=== PATIENT | male | born 1965 | race Caucasian/White ===

== ENCOUNTER 2018-02-16 10:19 | Inpatient (IN) | payer OTHER ==
[2018-02-16 10:38] VITALS: BMI 18.6
--- NOTE | 2018-02-16 12:51 | HP ---
COWS - Scale Resting Pulse: 0= [place] 80 or Below Sweatin= Chills/Flushing Restless Observation: 3= Extraneous Movement Pupil Size: 2= Moderately Dilated Bone or Joint Aches: 1= Mild Discomfort Runny Nose/ Eye Tearin= Runny Nose/Eyes GI Upset > 30mins: 2= Nausea/Diarrhea (NAUSEA) Tremor Observation: 2= Slight Tremor Visible Yawning Observation: 1= 1-2x During Session Anxiety or Irritability: 2=Irritable/Anxious Goose Flesh Skin: 0=Smooth Skin COWS Score: 16 CIWA Score - CIWA Score Nausea/Vomitin-Int. Nausea w/Dry Heave Muscle Tremors: 3 Anxiety: 4-Mod. Anxious/Guarded Agitation: 3 Paroxysmal Sweats: 1-Minimal Palms Moist Orientation: 0-Oriented Tacttile Disturbances: 0-None Auditory Disturbances: 0-None Visual Disturbances: 0-None Headache: 0-None Present CIWA-Ar Total Score: 15 Admission ROS S - HPI Chief Complaint: HEROIN AND ALCOHOL WITHDRAWAL SX. Allergies/Adverse Reactions: Allergies Allergy/AdvReac Type Severity Reaction Status Date / Time Fish Containing Products Allergy Severe Hives Verified 02/16/18 10:38 NKDA Allergy Uncoded 02/16/18 11:30 History of Present Illness: 52 Y/O H/MALE WITH A HX OF HEROIN, ALCOHOL AND COCAINE DEPENDENCE SEEKING DETOX TX. FIRST ADMISSION HERE. PT REPORTS PREVIOUS TREATMENT EPISODES. PT REPORTS LONGEST PERIOD OF SOBRIETY OF SEVEN YEARS. PT REPORTS PMD TO BE DR. HECTOR GUEVARA AT [facility]. Exam Limitations: No Limitations - Ebola screening Have you traveled outside of the country in the last 21 days: No Have you had contact with anyone from an Ebola affected area: No Have you been sick,other than usual withdrawal symptoms: No Do you have a fever: No - Review of Systems Constitutional: Chills, Loss of Appetite, Night Sweats, Changes in sleep, Unintentional Wgt. Loss EENT: reports: Tearing, Nose Congestion, Dental Problems (MISSING TEETH) Respiratory: reports: Shortness of Breath (HX ASTHMA), Wheezing Cardiac: reports: Lightheadedness GI: reports: Constipated (OIC), Diarrhea, Nausea, Poor Appetite, Poor Fluid Intake, Vomiting : reports: No Symptoms Reported Musculoskeletal: reports: Joint Pain, Muscle Pain Integumentary: reports: Rash Endocrine: reports: No Symptoms Reported Hematology: reports: Anemia (HX) Psychiatric: reports: Orientated x3, Anxious, Depressed Other Systems: Reviewed and Negative Patient History - Patient Medical History Hx Anemia: Yes (NO MED) Hx Asthma: Yes (MDI) Hx Chronic Obstructive Pulmonary Disease (COPD): Yes (MDI) Hx Cardiac Disorders: No Hx Hypertension: No Hx Hypercholesterolemia: No HX Cerebrovascular Accident: No Hx Seizures: No Hx Diabetes: No Hx Gastrointestinal Disorders: No Hx Genitourinary Disorders: No Hx Sexually Transmitted Disorders: No Hx Renal Disease (ESRD): No Hx Thyroid Disease: No Hx Human Immunodeficiency Virus (HIV): No (NEGATIVE HX) Hx Hepatitis C: No Hx Depression: Yes (NO MEDS-WANTS PSYCH FOLLOW UP ) Hx Suicide Attempt: No (DENIES S/I) Hx Schizophrenia: No - Patient Surgical History Past Surgical History: Yes Hx Neurologic Surgery: No Hx Cataract Extraction: No Hx Cardiac Surgery: No Hx Lung Surgery: No Hx Breast Surgery: No Hx Breast Biopsy: No Hx Abdominal Surgery: No Hx Appendectomy: No Hx Cholecystectomy: No Hx Genitourinary Surgery: No Hx Orthopedic Surgery: Yes (fx, left arm at age 33) Other Surgical History: fx, bilateral mandible at age 13 Anesthesia Reaction: No - PPD History Previous Implant?: Yes Documented Results: Negative w/o proof Implanted On Prior R Admission?: No PPD to be Administered?: Yes - Reproductive History Patient is a Female of Child Bearing Age (11 -55 yrs old): No (MALE) - Smoking Cessation Smoking history: Current every day smoker Have you smoked in the past 12 months: Yes Aproximately how many cigarettes per day: 5 Hx Chewing Tobacco Use: No Initiated information on smoking cessation: Yes 'Breaking Loose' booklet given: 02/16/18 - Substance & Tx. History Hx Alcohol Use: Yes (VODKA) Hx Substance Use: Yes (HEROIN/COCAINE) Substance Use Type: Alcohol, Cocaine, Heroin Hx Substance Use Treatment: Yes (LAST TX AT [facility])) - Substances Abused Heroin Route: Inhalation Frequency: Daily Amount used: 4-5 bags Age of first use: 25 Date of Last Use: 02/16/18 Cocaine Route: Inhalation Frequency: 1-2 times per week Amount used: $10 Age of first use: 19 Date of Last Use: 02/14/18 Alcohol-vodka/beer Route: Oral Frequency: Daily Amount used: 1/2 - 1 pt./1-6 pk. Age of first use: 15 Date of Last Use: 02/16/18 Family Disease History - Family Disease History Family History: Denies Admission Physical Exam [facility] - Vital Signs Vital Signs: Vital Signs - 24 hr 02/16/18 10:36 Temperature 97.2 F L Pulse Rate 71 Respiratory 20 Rate Blood Pressure 117/84 - Physical General Appearance: Yes: Moderate Distress, Alcohol on Breath, Thin, Irritable, Anxious HEENTM: Yes: EOMI, Normocephalic, KOBI, Pharynx Normal, Nasal Congestion, Rhinorrhea Respiratory: Yes: Chest Non-Tender, Lungs Clear, Normal Breath Sounds, No Respiratory Distress Neck: Yes: No masses,lesions,Nodules, Supple, Trachea in good position Breast: Yes: Breast Exam Deferred Cardiology: Yes: Regular Rhythm, Regular Rate, S1, S2 Abdominal: Yes: Normal Bowel Sounds, Non Tender, Flat Genitourinary: Yes: Other (N/C) Back: Yes: Within Normal Limits Musculoskeletal: Yes: Gait Steady Extremities: Yes: Normal Range of Motion, Non-Tender Neurological: Yes: mass spec II-XII NML intact, Fully Oriented, Alert, Motor Strength 5/5 Integumentary: Yes: Dry, Warm Lymphatic: Yes: Within Normal Limits - Diagnostic (1) Opioid dependence with withdrawal Current Visit: Yes Status: Acute (2) Alcohol dependence with uncomplicated withdrawal Current Visit: Yes Status: Acute (3) Cocaine dependence, uncomplicated Current Visit: Yes Status: Acute (4) Depressed Current Visit: Yes Status: Suspected Qualifiers: Major depression episode severity: unspecified Cleared for Admission [facility] - Detox or Rehab [facility] Level of Care: Medically Managed Detox Regimen/Protocol: Methadone/Librium [facility] Breath Alcohol Content Breath Alcohol Content: 0.024 Urine Drug Screen - Results Drug Screen Negative: No Urine Drug Screen Results: THC-Marijuana, SERGEI-Cocaine, OPI-Opiates, TCA- Tricyclic Antidepress
[2018-02-16] MEDS ORDERED: MAGNESIUM CITRATE 300 ML BOTTLE PO PRN (13:05)
[2018-02-16] MEDS ORDERED: hydrOXYzine PAMOATE 50 MG CAPSULE (FP) PO PRN (13:05)
[2018-02-16] MEDS ORDERED: LOPERAMIDE HCL 2 MG CAPSULE PO PRN (13:05)
[2018-02-16] MEDS ORDERED: MAGNESIUM HYDROX 2400MG/30ML ORAL SUSPENSION 30 ML CUP PO PRN (13:05)
[2018-02-16] MEDS ORDERED: P-EPHED 60MG/TRIPROLIDI 2.5MG TABLET PO PRN (13:05)
[2018-02-16] MEDS ORDERED: guaiFENesin/D-METHORPHAN HB 10 ML UNIT-DOSE CUPS PO PRN (13:05)
[2018-02-16] MEDS ORDERED: ACETAMINOPHEN 325 MG TABLET (FP) PO PRN (13:05)
[2018-02-16] MEDS ORDERED: chlordiazePOXIDE HCL 25 MG CAPSULE PO PRN (13:05)
[2018-02-16] MEDS ORDERED: IBUPROFEN 400 MG TABLET (FP) PO PRN (13:05)
[2018-02-16] MEDS ORDERED: MAG HYDROX/AL HYDROX/SIMETH 30 ML UNIT-DOSE CUP PO PRN (13:05)
[2018-02-16] MEDS ORDERED: MENTHOL/PHENOL 1 EACH UD MM PRN (13:05)
[2018-02-16] MEDS ORDERED: NICOTINE POLACRILEX 2 MG GUM BUC PRN (13:05)
[2018-02-16] MEDS ORDERED: ALBUTEROL SO4 18 GM HFA INHALER IH PRN (13:10)
[2018-02-16] MEDS ORDERED: METHADONE HCL 10 MG TABLET (FOR DETOX USE ONLY) PO ONE ×2 (13:30→23:00)
[2018-02-16] MEDS ORDERED: chlordiazePOXIDE HCL 25 MG CAPSULE PO ONE (13:30)
[2018-02-16] MEDS: NICOTINE 14 MG/24 HOURS TOPICAL PATCH TD SCH (13:58)
--- NOTE | 2018-02-16 14:47 | CONSULT ---
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 This is patient's first admission to detox at [facility]. Patient admitted to for alcohol and heroin dependence. Substance Abuse History: Smoking Cessation. Smoking history: Current every day smoker. Have you smoked in the past 12 months: Yes. Aproximately how many cigarettes per day: 5. Hx Chewing Tobacco Use: No. Initiated information on smoking cessation: Yes. 'Breaking Loose' booklet given: 02/16/18. - Substance & Tx. History. Hx Alcohol Use: Yes (VODKA). Hx Substance Use: Yes (HEROIN/ COCAINE). Substance Use Type: Alcohol, Cocaine, Heroin. Hx Substance Use Treatment: Yes (LAST TX AT [facility])). - Substances Abused. Heroin. Route: Inhalation. Frequency: Daily. Amount used: 4-5 bags. Age of first use : 25. Date of Last Use: 02/16/18. Cocaine. Route: Inhalation. Frequency: 1-2 times per week. Amount used: $10. Age of first use: 19. Date of Last Use : 02/14/18. Alcohol-vodka/beer. Route: Oral. Frequency: Daily. Amount used: 1/2 - 1 pt./1-6 pk. Age of first use: 15. Date of Last Use: 02/16/18 Medical History: Asthma, Anemia, bilateral mandible surgery at 13, fxl left arm at age 33, Psychiatric History: Patient denies h/o psychiatric hospitalization, outpatient care, and suicide attempt. Physical/Sexual Abuse/Trauma History: Denies. Mental Status Exam - Mental Status Exam Alert and Oriented to: Time, Place, Person Cognitive Function: Good Patient Appearance: Well Groomed Mood: Hopeful Affect: Mood Congruent Patient Behavior: Appropriate, Cooperative Speech Pattern: Appropriate Voice Loudness: Normal Thought Process: Intact, Goal Oriented Thought Disorder: Not Present Hallucinations: Denies Suicidal Ideation: Denies Homicidal Ideation: Denies Insight/Judgement: Poor Sleep: Fair Appetite: Poor Muscle strength/Tone: Normal Gait/Station: Normal Psychiatric Findings - Problem List ([place] 1, 2,3) (1) Alcohol dependence with uncomplicated withdrawal Current Visit: Yes Status: Acute (2) Opioid dependence with withdrawal Current Visit: Yes Status: Acute (3) Substance induced mood disorder Current Visit: Yes Status: Suspected (4) Cocaine dependence, uncomplicated Current Visit: Yes Status: Acute (5) Cannabis dependence Current Visit: Yes Status: Acute - Initial Treatment Plan Initial Treatment Plan: Psychoeducation provided. Detoxification in progress. Observation.
[2018-02-16] MEDS: chlordiazePOXIDE HCL 25 MG CAPSULE PO SCH ×2 (17:28→22:11)
[2018-02-16 20:39] LABS: URINE APPEARANCE CLEAR; URINE BILIRUBIN NEGATIVE (<2.0 mg/dL); URINE COLOR DKYELLOW; URINE GLUCOSE (UA) NEGATIVE (NEGATIVE); URINE KETONE NEGATIVE (NEGATIVE); URINE LEUK ESTERASE NEGATIVE (NEGATIVE); URINE NITRITE NEGATIVE (NEGATIVE); URINE PROTEIN NEGATIVE (NEGATIVE)
[2018-02-16] MEDS: BUDESONIDE/FORMETEROL FUMARATE 80/4.5 mcg INHALER IH SCH (22:11)
[2018-02-16] MEDS: THIAMINE HCL 100 MG TABLET (FP) PO SCH (22:11)
[2018-02-16] MEDS: MELATONIN 5 MG TABLETS PO PRN (22:13)
[2018-02-17] MEDS: chlordiazePOXIDE HCL 25 MG CAPSULE PO SCH ×4 (07:05→22:22)
--- NOTE | 2018-02-17 09:50 | EKG ---
Test Reason : Blood Pressure : / mmHG Vent. Rate : 067 BPM Atrial Rate : 067 BPM P-R Int : 118 ms QRS Dur : 088 ms QT Int : 392 ms P-R-T Axes : -15 068 067 degrees QTc Int : 414 ms NORMAL SINUS RHYTHM NO PREVIOUS ECGS AVAILABLE Confirmed by ADRIANNA FLORES MD ([id number]) on 02/17/2018 9:49:55 AM Referred By: Confirmed By:ADRIANNA FLORES MD
[2018-02-17 10:00] LABS: HEMATOCRIT 38.1 % (35.4-49); MCH 31.5 pg (25.7-33.7); MCHC 34.1 g/dl (32.0-35.9); MEAN CELL VOLUME 92.4 fl (80-96); MEAN PLT VOLUME 7.9 fl (7.5-11.1); PLATELET COUNT 360 K/MM3 (134-434); RBC 4.12 M/mm3 (4.00-5.60); RDW 13.9 % (11.9-15.9); WHITE BLOOD COUNT 5.7 K/mm3 (4.0-10.0)
[2018-02-17] MEDS ORDERED: METHADONE HCL 10 MG TABLET (FOR DETOX USE ONLY) PO SCH (10:00)
[2018-02-17] MEDS: PRENATAL VITAMINS W/ FOLIC ACID TABLET (FP) PO SCH (10:37)
[2018-02-17] MEDS: BUDESONIDE/FORMETEROL FUMARATE 80/4.5 mcg INHALER IH SCH ×2 (10:38→22:22)
[2018-02-17] MEDS: NICOTINE 14 MG/24 HOURS TOPICAL PATCH TD SCH (10:38)
[2018-02-17 11:18] LABS: SICKLE CELL SCREEN NEGATIVE (NEGATIVE)
[2018-02-17 11:42] LABS: ALBUMIN 3.3 g/dl (3.4-5.0); ALK PHOS 95 U/L (45-117); ANION GAP 4 (8-16); BILIRUBIN,TOTAL 0.4 mg/dL (0.2-1.0); BLOOD UREA NITROGEN 13 mg/dL (7-18); CALCIUM 9.2 mg/dL (8.5-10.1); CHLORIDE 104 mmol/L (98-107); CO2 29 mmol/L (21-32); CREATININE 0.9 mg/dL (0.7-1.3); GLUCOSE,RANDOM 148 mg/dL (74-106); POTASSIUM 4.6 mmol/L (3.5-5.1); SGOT/AST 18 U/L (15-37); SGPT/ALT 19 U/L (12-78); SODIUM 137 mmol/L (136-145); TOT PROT 7.2 g/dl (6.4-8.2)
--- NOTE | 2018-02-17 13:54 | PN ---
S CIWA - CIWA Score Nausea/Vomitin-Int. Nausea w/Dry Heave Muscle Tremors: 3 Anxiety: 4-Mod. Anxious/Guarded Agitation: 2 Paroxysmal Sweats: 2 Orientation: 0-Oriented Tacttile Disturbances: 1-Very Mild Itch/Numbness Auditory Disturbances: 1-Very Mild Visual Disturbances: 0-None Headache: 0-None Present CIWA-Ar Total Score: 17 [facility] COWS - Scale Resting Pulse: 0= [place] 80 or Below Sweatin= Chills/Flushing Restless Observation: 0= Sits Still Pupil Size: 0= Normal to Room Light Bone or Joint Aches: 0= None Runny Nose/ Eye Tearin= Runny Nose/Eyes GI Upset > 30mins: 2= Nausea/Diarrhea Tremor Observation of Outstretched Hands: 2= Slight Tremor Visible Yawning Observation: 2= >3x During Session Anxiety or Irritability: 2=Irritable/Anxious Goose Flesh Skin: 3=Piloerection COWS Score: 14 S Progress Note (SOAP) Subjective: Anxious, Fatigue, Sweating, Tremors. Objective: PATIENT A & O X 3. NO ACUTE DISTRESS. 02/17/18 13:55 Vital Signs Temperature 97.5 F L 02/17/18 09:24 Pulse Rate 59 L 02/17/18 09:24 Respiratory Rate 18 02/17/18 09:24 Blood Pressure 108/68 02/17/18 09:24 O2 Sat by Pulse Oximetry (%) Laboratory Tests 02/16/18 02/17/18 02/17/18 14:40 06:00 06:00 WBC 5.7 RBC 4.12 Hgb 13.0 Hct 38.1 MCV 92.4 MCH 31.5 MCHC 34.1 RDW 13.9 Plt Count 360 MPV 7.9 Sickle Cell Screen Negative Sodium 137 Potassium 4.6 Chloride 104 Carbon Dioxide 29 Anion Gap 4 L BUN 13 Creatinine 0.9 Creat Clearance w eGFR > 60 Random Glucose 148 H Calcium 9.2 Total Bilirubin 0.4 AST 18 ALT 19 Alkaline Phosphatase 95 Total Protein 7.2 Albumin 3.3 L Urine Color Dkyellow Urine Appearance Clear Urine pH 5.0 Ur Specific [place] 1.026 Urine Protein Negative Urine Glucose (UA) Negative Urine Ketones Negative Urine Blood Negative Urine Nitrite Negative Urine Bilirubin Negative Urine Urobilinogen 2.0 Ur Leukocyte Esterase Negative RPR Titer 02/17/18 06:00 WBC RBC Hgb Hct MCV MCH MCHC RDW Plt Count MPV Sickle Cell Screen Sodium Potassium Chloride Carbon Dioxide Anion Gap BUN Creatinine Creat Clearance w eGFR Random Glucose Calcium Total Bilirubin AST ALT Alkaline Phosphatase Total Protein Albumin Urine Color Urine Appearance Urine pH Ur Specific [place] Urine Protein Urine Glucose (UA) Urine Ketones Urine Blood Urine Nitrite Urine Bilirubin Urine Urobilinogen Ur Leukocyte Esterase RPR Titer Nonreactive LABS NOTED. Assessment: 02/17/18 13:56 WITHDRAWAL SYMPTOMS. Plan: CONTINUE DETOX. INCREASE DAILY PO FLUID INTAKE. BGM ACBK FOR ELEVATED ADMISSION RANDOM GLUCOSE LEVEL.
[2018-02-17] MEDS: MELATONIN 5 MG TABLETS PO PRN (22:21)
[2018-02-17] MEDS: THIAMINE HCL 100 MG TABLET (FP) PO SCH (22:21)
[2018-02-18] MEDS: chlordiazePOXIDE HCL 25 MG CAPSULE PO SCH ×2 (05:35→10:26)
[2018-02-18] MEDS ORDERED: METHADONE HCL 5 MG TABLET (FOR DETOX USE ONLY) PO SCH (10:00)
[2018-02-18] MEDS: NICOTINE 14 MG/24 HOURS TOPICAL PATCH TD SCH (10:26)
[2018-02-18] MEDS: PRENATAL VITAMINS W/ FOLIC ACID TABLET (FP) PO SCH (10:26)
[2018-02-18] MEDS: BUDESONIDE/FORMETEROL FUMARATE 80/4.5 mcg INHALER IH SCH (10:26)
[2018-02-18 13:25] VITALS: BP 123/77; PULSE 62; TEMP 97
--- NOTE | 2018-02-18 15:48 | PN ---
[facility] CIWA - CIWA Score Nausea/Vomitin-No Nausea/No Vomiting Muscle Tremors: 3 Anxiety: 4-Mod. Anxious/Guarded Agitation: 2 Paroxysmal Sweats: 3 Orientation: 0-Oriented Tacttile Disturbances: 2-Mild Itch/Numbness/Burn Auditory Disturbances: 0-None Visual Disturbances: 2-Mild Sensitivity Headache: 0-None Present CIWA-Ar Total Score: 16 S COWS - Scale Resting Pulse: 0= [place] 80 or Below Sweatin= Chills/Flushing Restless Observation: 0= Sits Still Pupil Size: 0= Normal to Room Light Bone or Joint Aches: 0= None Runny Nose/ Eye Tearin= Nasal Congestion GI Upset > 30mins: 0= None Tremor Observation of Outstretched Hands: 2= Slight Tremor Visible Yawning Observation: 2= >3x During Session Anxiety or Irritability: 2=Irritable/Anxious Goose Flesh Skin: 3=Piloerection COWS Score: 11 S Progress Note (SOAP) Subjective: Sweating, Anxious, Tremors, Hot / Cold Sensations. Objective: PATIENT A & O X 3, OBSERVED AMBULATING ON UNIT. NO ACUTE DISTRESS. 02/18/18 15:47 Vital Signs Temperature 97.0 F L 02/18/18 13:25 Pulse Rate 62 02/18/18 13:25 Respiratory Rate 18 02/18/18 13:25 Blood Pressure 123/77 02/18/18 13:25 O2 Sat by Pulse Oximetry (%) Laboratory Tests 02/16/18 02/17/18 02/17/18 14:40 06:00 06:00 WBC 5.7 RBC 4.12 Hgb 13.0 Hct 38.1 MCV 92.4 MCH 31.5 MCHC 34.1 RDW 13.9 Plt Count 360 MPV 7.9 Sickle Cell Screen Negative Sodium 137 Potassium 4.6 Chloride 104 Carbon Dioxide 29 Anion Gap 4 L BUN 13 Creatinine 0.9 Creat Clearance w eGFR > 60 Random Glucose 148 H Calcium 9.2 Total Bilirubin 0.4 AST 18 ALT 19 Alkaline Phosphatase 95 Total Protein 7.2 Albumin 3.3 L Urine Color Dkyellow Urine Appearance Clear Urine pH 5.0 Ur Specific [place] 1.026 Urine Protein Negative Urine Glucose (UA) Negative Urine Ketones Negative Urine Blood Negative Urine Nitrite Negative Urine Bilirubin Negative Urine Urobilinogen 2.0 Ur Leukocyte Esterase Negative RPR Titer 02/17/18 06:00 WBC RBC Hgb Hct MCV MCH MCHC RDW Plt Count MPV Sickle Cell Screen Sodium Potassium Chloride Carbon Dioxide Anion Gap BUN Creatinine Creat Clearance w eGFR Random Glucose Calcium Total Bilirubin AST ALT Alkaline Phosphatase Total Protein Albumin Urine Color Urine Appearance Urine pH Ur Specific [place] Urine Protein Urine Glucose (UA) Urine Ketones Urine Blood Urine Nitrite Urine Bilirubin Urine Urobilinogen Ur Leukocyte Esterase RPR Titer Nonreactive LABS NOTED. Assessment: 02/18/18 15:47 WITHDRAWAL SYMPTOMS. Plan: CONTINUE DETOX. INCREASE DAILY PO FLUID INTAKE. ENCOURAGE AMBULATION.
[2018-02-18] MEDS ORDERED: chlordiazePOXIDE 5 MG CAPSULE PO SCH (17:00)
--- NOTE | 2018-02-18 18:19 | PN ---
[facility] Progress Note Note: pt left the unit prior to provider eval. Insisting on leaving and did not wait
--- NOTE | 2018-02-18 18:20 | DS ---
[facility] Detox Discharge Summary Admission Date: 02/16/18 Discharge Date: 02/18/18 - History Additional Comments: pt left the unit against medical advice - Physical Exam Results Vital Signs: Vital Signs Temperature 97.0 F L 02/18/18 13:25 Pulse Rate 62 02/18/18 13:25 Respiratory Rate 18 02/18/18 13:25 Blood Pressure 123/77 02/18/18 13:25 O2 Sat by Pulse Oximetry (%) Pertinent Admission Physical Exam Findings: withdrawal sx - Medication Discharge Medications: Ambulatory Orders Albuterol Sulfate Inhaler - [Ventolin Hfa Inhaler -] 2 inh PO Q4H PRN 02/16/18 - Diagnosis (1) Alcohol dependence with uncomplicated withdrawal Status: Acute (2) Cannabis dependence Status: Acute (3) Cocaine dependence, uncomplicated Status: Acute (4) Opioid dependence with withdrawal Status: Acute (5) Depressed Status: Suspected Qualifiers: Depression Type: unspecified Qualified Code(s): F32.9 - Major depressive disorder, single episode, unspecified (6) Substance induced mood disorder Status: Suspected - AMA Did Patient Leave Against Medical Advice: Yes
[2018-02-19] MEDS ORDERED: chlordiazePOXIDE HCL 10 MG CAPSULE PO SCH (17:00)
[2018-02-20] MEDS ORDERED: METHADONE HCL 10 MG TABLET (FOR DETOX USE ONLY) PO SCH (10:00)
[2018-02-21] MEDS ORDERED: METHADONE HCL 5 MG TABLET (FOR DETOX USE ONLY) PO SCH (06:00)
== END 2018-02-18 17:44 | disposition left against medical advice (07) | DRG 770 ==
LOC: YASAS 10:19 → Y3N 13:17
PROVIDERS: ADMIT Family Medicine Addiction Medicine; ATTEND Family Medicine Addiction Medicine
PROC: HZ2ZZZZ Detoxification Services for Substance Abuse Treatment (ICD-10-PCS; principal; 2018-02-16)
DX: F11.23 Opioid dependence with withdrawal (principal); F10.230 Alcohol dependence with withdrawal, uncomplicated; F14.20 Cocaine dependence, uncomplicated; F12.20 Cannabis dependence, uncomplicated; F17.210 Nicotine dependence, cigarettes, uncomplicated; F32.9 Major depressive disorder, single episode, unspecified; F19.24 Other psychoactive substance dependence with psychoactive substance-induced mood disorder; J45.909 Unspecified asthma, uncomplicated; J44.9 Chronic obstructive pulmonary disease, unspecified; Z91.013 Allergy to seafood
CPT/HCPCS: 36415; 80053; 81003; 85027; 85660; 86593; 93005; 93010

== ENCOUNTER 2018-09-23 13:59 | Inpatient (IN) | payer OTHER ==
[2018-09-23 14:16] VITALS: BMI 18.9
--- NOTE | 2018-09-23 14:45 | HP ---
COWS - Scale Resting Pulse: 2= [place] 101-120 Sweatin= Chills/Flushing Restless Observation: 1= Difficult to Sit Still Pupil Size: 0= Normal to Room Light Bone or Joint Aches: 2= Severe Diffuse Aches Runny Nose/ Eye Tearin= Runny Nose/Eyes GI Upset > 30mins: 1= Stomach Cramp Tremor Observation: 2= Slight Tremor Visible Yawning Observation: 1= 1-2x During Session Anxiety or Irritability: 2=Irritable/Anxious Goose Flesh Skin: 0=Smooth Skin COWS Score: 14 CIWA Score Nausea/Vomitin Muscle Tremors: 4-Moderate,w/Arms Extend Anxiety: 4-Mod. Anxious/Guarded Agitation: 1-Slight > Activity Paroxysmal Sweats: 1-Minimal Palms Moist Orientation: 1-Uncertain about Date Tacttile Disturbances: 1-Very Mild Itch/Numbness Auditory Disturbances: 1-Very Mild Visual Disturbances: 1-Very Mild Sensitivity Headache: 2-Mild CIWA-Ar Total Score: 18 - Admission Criteria [facility] Guidelines: Admission for Medically Managed Detox: Requires at least one of the followin. CIWA greater than 12 2. Seizures within the past 24 hours 3. Delirium tremens within the past 24 hours 4. Hallucinations within the past 24 hours 5. Acute intervention needed for co occurring medical disorder 6. Acute intervention needed for co occurring psychiatric disorder 7. Severe withdrawal that cannot be handled at a lower level of care (continued vomiting, continued diarrhea, abnormal vital signs) requiring intravenous medication and/or fluids 8. Admission ROS [facility] - HPI Chief Complaint: It's time, I'm tired, I want to get a good job. Allergies/Adverse Reactions: Allergies Allergy/AdvReac Type Severity Reaction Status Date / Time Fish Containing Products Allergy Severe Hives Verified 02/16/18 10:38 No Known Drug Allergies Allergy Unknown Verified 02/16/18 13:26 NKDA Allergy Uncoded 02/16/18 11:30 History of Present Illness: 53 yo gentleman here for detox from opiate and alcohol. Drinks first thing in the morning to get going. Was on suboxone program - brought letter from his suboxone program indicating that he has left the program and they will no longer be prescribing suboxone. Patient stopped using the suboxone for three weeks and does not want to go back to it. Denies seizures, no black outs or overdose but gives history of being on methadone program years ago. Exam Limitations: Clinical Condition - Ebola screening Have you traveled outside of the country in the last 21 days: No (N) Have you had contact with anyone from an Ebola affected area: No Have you been sick,other than usual withdrawal symptoms: No Do you have a fever: No - Review of Systems Constitutional: Loss of Appetite, Changes in sleep, Weakness EENT: reports: Blurred Vision, Nose Congestion, Other (poor dentition) Respiratory: reports: No Symptoms reported Cardiac: reports: No Symptoms Reported GI: reports: Poor Appetite, Indigestion : reports: No Symptoms Reported Musculoskeletal: reports: Back Pain, Muscle Pain Integumentary: reports: Dryness Neuro: reports: Headache, Tremors Endocrine: reports: No Symptoms Reported Hematology: reports: No Symptoms Reported Psychiatric: reports: Judgement Intact, Mood/Affect Appropiate, Anxious Other Systems: Reviewed and Negative Patient History - Patient Medical History Hx Anemia: Yes (NO MED) Hx Asthma: Yes (MDI) Hx Chronic Obstructive Pulmonary Disease (COPD): Yes (MDI) Hx Cancer: No Hx Cardiac Disorders: No Hx Congestive Heart Failure: No Hx Hypertension: No Hx Hypercholesterolemia: No Hx Pacemaker: No HX Cerebrovascular Accident: No Hx Seizures: No Hx Diabetes: No Hx Gastrointestinal Disorders: No Hx Liver Disease: No Hx Genitourinary Disorders: No Hx Sexually Transmitted Disorders: No Hx Renal Disease (ESRD): No Hx Thyroid Disease: No Hx Human Immunodeficiency Virus (HIV): No (NEGATIVE HX) Hx Hepatitis C: No Hx Depression: Yes (NO MEDS-WANTS PSYCH FOLLOW UP ) Hx Suicide Attempt: No (DENIES S/I) Hx Bipolar Disorder: No Hx Schizophrenia: No - Patient Surgical History Past Surgical History: Yes Hx Neurologic Surgery: No Hx Cataract Extraction: No Hx Cardiac Surgery: No Hx Lung Surgery: No Hx Breast Surgery: No Hx Breast Biopsy: No Hx Abdominal Surgery: No Hx Appendectomy: No Hx Cholecystectomy: No Hx Genitourinary Surgery: No Hx Section: No Hx Orthopedic Surgery: Yes (fx, left arm at age 33) Other Surgical History: fx, bilateral mandible at age 13 Anesthesia Reaction: No - PPD History Date: 02/18/18 - Reproductive History Patient is a Female of Child Bearing Age (11 -55 yrs old): No (male) - Smoking Cessation Smoking history: Current every day smoker Have you smoked in the past 12 months: Yes Aproximately how many cigarettes per day: 5 Hx Chewing Tobacco Use: No Initiated information on smoking cessation: Yes 'Breaking Loose' booklet given: 09/23/18 (give on floor) - Substance & Tx. History Hx Alcohol Use: Yes Hx Substance Use: Yes Substance Use Type: Alcohol, Cocaine, Opiates Hx Substance Use Treatment: Yes (detox, rehab, methadone program, suboxone program) - Substances Abused alcohol Route: Oral Frequency: Daily Amount used: 1.5 pints vodka Age of first use: 27 Date of Last Use: 09/23/18 heroin Route: Inhalation Frequency: Daily Amount used: 8 bags Age of first use: 26 Date of Last Use: 09/23/18 cocaine Route: Inhalation Frequency: 3-6 times per week Amount used: $50 Age of first use: 26 Date of Last Use: 09/23/18 Family Disease History - Family Disease History Family Disease History: [place]: Father (, ), Other: Father, Mother (living, healthy), Brother (five - healthy), Son (three - healthy) Admission Physical Exam [facility] - Vital Signs Vital Signs: Vital Signs - 24 hr 09/23/18 14:12 Temperature 97.5 F L Pulse Rate 115 H Respiratory 18 Rate Blood Pressure 134/67 - Physical General Appearance: Yes: Appropriately Dressed, Moderate Distress, Thin, Anxious HEENTM: Yes: EOMI, Normocephalic, Normal Voice, Pharynx Normal, Other ( decreased hearing) Respiratory: Yes: No Respiratory Distress Neck: Yes: No masses,lesions,Nodules Breast: Yes: Breast Exam Deferred Cardiology: Yes: Regular Rhythm, Tachycardia Abdominal: Yes: Flat, Soft Genitourinary: Yes: Frequency Back: Yes: Normal Inspection Musculoskeletal: Yes: full range of Motion, Gait Steady, Back pain, Muscle Pain Extremities: Yes: Normal Inspection, Normal Range of Motion, Non-Tender, Tremors Neurological: Yes: Alert, Motor Strength 5/5, Normal Mood/Affect, Normal Response Integumentary: Yes: Normal Color, Warm Lymphatic: Yes: Within Normal Limits - Diagnostic (1) Opioid dependence with withdrawal Current Visit: Yes Status: Chronic (2) Alcohol dependence with uncomplicated withdrawal Current Visit: Yes Status: Chronic (3) Nicotine dependence Current Visit: Yes Status: Acute Qualifiers: Nicotine product type: cigarettes Substance use status: uncomplicated Qualified Code(s): F17.210 - Nicotine dependence, cigarettes, uncomplicated (4) Underweight Current Visit: Yes Status: Chronic (5) Decreased hearing Current Visit: Yes Status: Chronic Qualifiers: Laterality: bilateral Qualified Code(s): H91.93 - Unspecified hearing loss , bilateral (6) Asthma Current Visit: Yes Status: Acute Qualifiers: Asthma severity: mild Asthma persistence: intermittent Asthma complication type: uncomplicated Qualified Code(s): J45.20 - Mild intermittent asthma, uncomplicated Cleared for Admission [facility] - Detox or Rehab [facility] Level of Care: Medically Managed Detox Regimen/Protocol: Methadone/Librium S Breath Alcohol Content Breath Alcohol Content: 0.034 Urine Drug Screen - Results Drug Screen Negative: No Urine Drug Screen Results: SERGEI-Cocaine, OPI-Opiates, FEN-Fentanyl
[2018-09-23] MEDS ORDERED: chlordiazePOXIDE HCL 25 MG CAPSULE PO PRN (14:55)
[2018-09-23] MEDS ORDERED: MAG HYDROX/AL HYDROX/SIMETH 30 ML UNIT-DOSE CUP PO PRN (14:55)
[2018-09-23] MEDS ORDERED: ACETAMINOPHEN 325 MG TABLET (FP) PO PRN (14:55)
[2018-09-23] MEDS ORDERED: LOPERAMIDE HCL 2 MG CAPSULE PO PRN (14:55)
[2018-09-23] MEDS ORDERED: IBUPROFEN 400 MG TABLET (FP) PO PRN (14:55)
[2018-09-23] MEDS ORDERED: MAGNESIUM CITRATE 300 ML BOTTLE PO PRN (14:55)
[2018-09-23] MEDS ORDERED: METHADONE HCL 10 MG TABLET (FOR DETOX USE ONLY) PO ONE ×2 (14:55→23:00)
[2018-09-23] MEDS ORDERED: MAGNESIUM HYDROX 2400MG/30ML ORAL SUSPENSION 30 ML CUP PO PRN (14:55)
[2018-09-23] MEDS ORDERED: MENTHOL/PHENOL 1 EACH UD MM PRN (14:55)
[2018-09-23] MEDS ORDERED: guaiFENesin/D-METHORPHAN HB 10 ML UNIT-DOSE CUPS PO PRN (14:55)
[2018-09-23] MEDS ORDERED: P-EPHED 60MG/TRIPROLIDI 2.5MG TABLET PO PRN (14:55)
[2018-09-23] MEDS ORDERED: ALBUTEROL SO4 8 GM HFA INHALER IH PRN (15:01)
[2018-09-23] MEDS ORDERED: NICOTINE 21 MG/24 HOURS TOPICAL PATCH TD SCH (15:15)
[2018-09-23] MEDS: chlordiazePOXIDE HCL 25 MG CAPSULE PO SCH ×2 (17:55→22:06)
[2018-09-23] MEDS ORDERED: MELATONIN 5 MG TABLETS PO PRN (22:00)
[2018-09-23] MEDS: THIAMINE HCL 100 MG TABLET (FP) PO SCH (22:06)
[2018-09-24] MEDS: chlordiazePOXIDE HCL 25 MG CAPSULE PO SCH ×4 (06:27→22:07)
[2018-09-24] MEDS ORDERED: METHADONE HCL 10 MG TABLET (FOR DETOX USE ONLY) PO SCH (10:00)
[2018-09-24] MEDS: PRENATAL VITAMINS W/ FOLIC ACID TABLET (FP) PO SCH (11:38)
--- NOTE | 2018-09-24 13:36 | PN ---
[facility] CIWA - CIWA Score Nausea/Vomitin Muscle Tremors: 4-Moderate,w/Arms Extend Anxiety: 4-Mod. Anxious/Guarded Agitation: 2 Paroxysmal Sweats: 3 Orientation: 0-Oriented Tacttile Disturbances: 1-Very Mild Itch/Numbness Auditory Disturbances: 0-None Visual Disturbances: 0-None Headache: 1-Very Mild CIWA-Ar Total Score: 18 [facility] COWS - Scale Resting Pulse: 0= [place] 80 or Below Sweatin= Chills/Flushing Restless Observation: 3= Extraneous Movement Pupil Size: 1= Pupils >than Normal Bone or Joint Aches: 2= Severe Diffuse Aches Runny Nose/ Eye Tearin= Runny Nose/Eyes GI Upset > 30mins: 3= Vomiting/Diarrhea Tremor Observation of Outstretched Hands: 2= Slight Tremor Visible Yawning Observation: 1= 1-2x During Session Anxiety or Irritability: 2=Irritable/Anxious Goose Flesh Skin: 0=Smooth Skin COWS Score: 17 [facility] Progress Note (SOAP) Subjective: Agitated; 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
[2018-09-24] MEDS: THIAMINE HCL 100 MG TABLET (FP) PO SCH (22:07)
[2018-09-25] MEDS ORDERED: CYCLOBENZAPRINE HCL 5 MG TABLET PO ONE (02:53)
[2018-09-25] MEDS: chlordiazePOXIDE HCL 25 MG CAPSULE PO SCH ×2 (06:02→10:17)
--- NOTE | 2018-09-25 09:36 | PN ---
[facility] CIWA - CIWA Score Nausea/Vomitin-Mild Nausea/No Vomiting Muscle Tremors: 3 Anxiety: 3 Agitation: 3 Paroxysmal Sweats: 1-Minimal Palms Moist Orientation: 1-Uncertain about Date Tacttile Disturbances: 0-None Auditory Disturbances: 0-None Visual Disturbances: 0-None Headache: 2-Mild CIWA-Ar Total Score: 14 S COWS - Scale Resting Pulse: 0= [place] 80 or Below Sweatin= Chills/Flushing Restless Observation: 0= Sits Still Pupil Size: 0= Normal to Room Light Bone or Joint Aches: 2= Severe Diffuse Aches Runny Nose/ Eye Tearin= Nasal Congestion GI Upset > 30mins: 2= Nausea/Diarrhea Tremor Observation of Outstretched Hands: 1= Tremor Conde, Not Seen Yawning Observation: 1= 1-2x During Session Anxiety or Irritability: 2=Irritable/Anxious Goose Flesh Skin: 0=Smooth Skin COWS Score: 10 [facility] Progress Note (SOAP) Subjective: irritable agitative body aches tremor sweating Objective: 09/25/18 09:38 Vital Signs Temperature 97 F L 09/25/18 09:01 Pulse Rate 60 09/25/18 09:01 Respiratory Rate 17 09/25/18 09:01 Blood Pressure 119/78 09/25/18 09:01 O2 Sat by Pulse Oximetry (%) lab pending Assessment: 09/25/18 09:40 withdrawal sx Plan: continue detox
[2018-09-25] MEDS ORDERED: METHADONE HCL 5 MG TABLET (FOR DETOX USE ONLY) PO SCH (10:00)
[2018-09-25 10:15] LABS: BASO % 1.3 % (0-2.0); EOS % 7.1 % (0-4.5); HEMATOCRIT 41.3 % (35.4-49); LYMPH % 31.3 % (8-40); MCH 31.3 pg (25.7-33.7); MCHC 33.9 g/dl (32.0-35.9); MEAN CELL VOLUME 92.3 fl (80-96); MEAN PLT VOLUME 7.8 fl (7.5-11.1); MONO % 9.4 % (3.8-10.2); NEUT % 50.9 % (42.8-82.8); PLATELET COUNT 402 K/MM3 (134-434); RBC 4.48 M/mm3 (4.00-5.60); RDW 14.3 % (11.9-15.9); WHITE BLOOD COUNT 7.1 K/mm3 (4.0-10.0)
[2018-09-25] MEDS: PRENATAL VITAMINS W/ FOLIC ACID TABLET (FP) PO SCH (10:17)
[2018-09-25 10:23] LABS: ALBUMIN 3.2 g/dl (3.4-5.0); ALK PHOS 91 U/L (45-117); ANION GAP 6 MMOL/L (8-16); BILIRUBIN,TOTAL 0.9 mg/dL (0.2-1); BLOOD UREA NITROGEN 14 mg/dL (7-18); CALCIUM 9.2 mg/dL (8.5-10.1); CHLORIDE 104 mmol/L (98-107); CO2 30 mmol/L (21-32); CREATININE 0.8 mg/dL (0.55-1.3); GLUCOSE,RANDOM 69 mg/dL (74-106); POTASSIUM 4.6 mmol/L (3.5-5.1); SGOT/AST 13 U/L (15-37); SGPT/ALT 15 U/L (13-61); SODIUM 140 mmol/L (136-145); TOT PROT 7.1 g/dl (6.4-8.2)
[2018-09-25 13:45] VITALS: BP 125/81; PULSE 51; TEMP 95.7
--- NOTE | 2018-09-25 15:42 | DS ---
[facility] Detox Discharge Summary Admission Date: 09/23/18 Discharge Date: 09/25/18 - History Present History: Alcohol Dependence, Opioid Dependence Additional Comments: 53 years old male admitted on 09/23/18 for alcohol and opiate withdrawal stabilization patient is at suboxone maintenance program since 10/2017 taking suboxone 8-2 mg bid last 30 days filled 08/25/18 patient wants to return to his suboxone program continue receiving suboxone Pertinent Past History: patient insists to leave the detox unit for "family matter" that he will receive suboxone soon from the program patient is alert no acute distress denies suicidal wether condition informed patient addressed the issue that clothing coat are in property - Physical Exam Results Vital Signs: Vital Signs Temperature 95.7 F L 09/25/18 13:44 Pulse Rate 51 L 09/25/18 13:44 Respiratory Rate 18 09/25/18 13:44 Blood Pressure 125/81 09/25/18 13:44 O2 Sat by Pulse Oximetry (%) Pertinent Admission Physical Exam Findings: alcohol and opiate withdrawal sx Vital Signs Temperature 95.7 F L 09/25/18 13:44 Pulse Rate 51 L 09/25/18 13:44 Respiratory Rate 18 09/25/18 13:44 Blood Pressure 125/81 09/25/18 13:44 O2 Sat by Pulse Oximetry (%) Laboratory Last Values WBC 7.1 K/mm3 (4.0-10.0) 09/25/18 07:55 RBC 4.48 M/mm3 (4.00-5.60) 09/25/18 07:55 Hgb 14.0 GM/dL (11.7-16.9) 09/25/18 07:55 Hct 41.3 % (35.4-49) 09/25/18 07:55 MCV 92.3 fl (80-96) 09/25/18 07:55 MCH 31.3 pg (25.7-33.7) 09/25/18 07:55 MCHC 33.9 g/dl (32.0-35.9) 09/25/18 07:55 RDW 14.3 % (11.9-15.9) 09/25/18 07:55 Plt Count 402 K/MM3 (134-434) 09/25/18 07:55 MPV 7.8 fl (7.5-11.1) 09/25/18 07:55 Absolute Neuts (auto) 3.6 K/mm3 (1.5-8.0) 09/25/18 07:55 Neutrophils % 50.9 % (42.8-82.8) 09/25/18 07:55 Lymphocytes % 31.3 % (8-40) 09/25/18 07:55 Monocytes % 9.4 % (3.8-10.2) 09/25/18 07:55 Eosinophils % 7.1 % (0-4.5) H 09/25/18 07:55 Basophils % 1.3 % (0-2.0) 09/25/18 07:55 Nucleated RBC % 0 % (0-0) 09/25/18 07:55 Sodium 140 mmol/L (136-145) 09/25/18 07:55 Potassium 4.6 mmol/L (3.5-5.1) 09/25/18 07:55 Chloride 104 mmol/L (98-107) 09/25/18 07:55 Carbon Dioxide 30 mmol/L (21-32) 09/25/18 07:55 Anion Gap 6 MMOL/L (8-16) L 09/25/18 07:55 BUN 14 mg/dL (7-18) 09/25/18 07:55 Creatinine 0.8 mg/dL (0.55-1.3) 09/25/18 07:55 Creat Clearance w eGFR > 60 (>60) 09/25/18 07:55 Random Glucose 69 mg/dL (74-106) L 09/25/18 07:55 Calcium 9.2 mg/dL (8.5-10.1) 09/25/18 07:55 Total Bilirubin 0.9 mg/dL (0.2-1) 09/25/18 07:55 AST 13 U/L (15-37) L 09/25/18 07:55 ALT 15 U/L (13-61) 09/25/18 07:55 Alkaline Phosphatase 91 U/L (45-117) 09/25/18 07:55 Total Protein 7.1 g/dl (6.4-8.2) 09/25/18 07:55 Albumin 3.2 g/dl (3.4-5.0) L 09/25/18 07:55 lab noted - Treatment Hospital Course: Detox Protocol Followed, Responded well Patient has Accepted a Rehab Referral to: suboxone program - Medication Discharge Medications: Ambulatory Orders Albuterol Sulfate Inhaler - [Ventolin Hfa Inhaler -] 2 inh PO Q4H PRN 02/16/18 - Diagnosis (1) Alcohol dependence with uncomplicated withdrawal Current Visit: Yes Status: Acute (2) Encounter for monitoring Suboxone maintenance therapy Current Visit: Yes Status: Chronic (3) Asthma Current Visit: Yes Status: Chronic Qualifiers: Asthma severity: mild Asthma persistence: intermittent Asthma complication type: uncomplicated Qualified Code(s): J45.20 - Mild intermittent asthma, uncomplicated (4) COPD (chronic obstructive pulmonary disease) Current Visit: Yes Status: Chronic Qualifiers: COPD type: emphysema Emphysema type: other Qualified Code(s): J43.8 - Other emphysema (5) Nicotine dependence Current Visit: Yes Status: Acute Qualifiers: Nicotine product type: cigarettes Substance use status: in withdrawal Qualified Code(s): F17.213 - Nicotine dependence, cigarettes, with withdrawal (6) Substance induced mood disorder Current Visit: Yes Status: Suspected - AMA Did Patient Leave Against Medical Advice: Yes
[2018-09-25] MEDS ORDERED: chlordiazePOXIDE 5 MG CAPSULE PO SCH (17:00)
[2018-09-26] MEDS ORDERED: chlordiazePOXIDE HCL 10 MG CAPSULE PO SCH (17:00)
[2018-09-27] MEDS ORDERED: METHADONE HCL 10 MG TABLET (FOR DETOX USE ONLY) PO SCH (10:00)
[2018-09-28] MEDS ORDERED: METHADONE HCL 5 MG TABLET (FOR DETOX USE ONLY) PO SCH (06:00)
== END 2018-09-25 15:35 | disposition left against medical advice (07) | DRG 770 ==
LOC: YASAS 13:59 → Y3N 15:25
PROVIDERS: ADMIT Neuromusculoskeletal Medicine & OMM; ATTEND Neuromusculoskeletal Medicine & OMM
PROC: HZ2ZZZZ Detoxification Services for Substance Abuse Treatment (ICD-10-PCS; principal; 2018-09-23)
DX: F10.230 Alcohol dependence with withdrawal, uncomplicated (principal); F11.20 Opioid dependence, uncomplicated; F14.20 Cocaine dependence, uncomplicated; F17.213 Nicotine dependence, cigarettes, with withdrawal; F19.24 Other psychoactive substance dependence with psychoactive substance-induced mood disorder; F32.9 Major depressive disorder, single episode, unspecified; J45.20 Mild intermittent asthma, uncomplicated; J43.8 Other emphysema; D64.9 Anemia, unspecified; R63.6 Underweight; Z68.1 Body mass index [BMI] 19.9 or less, adult; R00.0 Tachycardia, unspecified; H91.93 Unspecified hearing loss, bilateral; Z91.013 Allergy to seafood
CPT/HCPCS: 36415; 80053; 85025

== ENCOUNTER 2021-05-13 12:52 | Inpatient (IN) | payer OTHER ==
[2021-05-13 13:56] VITALS: BMI 19.0
[2021-05-13] MEDS ORDERED: hydrOXYzine PAMOATE 25 MG CAPSULE (FP) PO PRN (14:53)
[2021-05-13] MEDS ORDERED: BISMUTH SUBSALICYLATE 524 MG/30 ML PO PRN (14:53)
[2021-05-13] MEDS ORDERED: ACETAMINOPHEN 325 MG TABLET (FP) PO PRN ×2 (14:53)
[2021-05-13] MEDS ORDERED: MAG HYDROX/AL HYDROX/SIMETH 30 ML UNIT-DOSE CUP PO PRN (14:53)
[2021-05-13] MEDS ORDERED: MAGNESIUM CITRATE 300 ML BOTTLE PO PRN (14:53)
[2021-05-13] MEDS ORDERED: NICOTINE 10 MG CARTRIDGE (INHALER) IH PRN (14:53)
[2021-05-13] MEDS ORDERED: MAGNESIUM HYDROX 2400MG/30ML ORAL SUSPENSION 30 ML CUP PO PRN (14:53)
[2021-05-13] MEDS ORDERED: MENTHOL/PHENOL 1 EACH UD MM PRN (14:53)
[2021-05-13] MEDS ORDERED: IBUPROFEN 400 MG TABLET (FP) PO PRN (14:53)
[2021-05-13] MEDS ORDERED: ONDANSETRON *ODT* 4 MG TABLET SL PRN (14:53)
[2021-05-13] MEDS: diazePAM 5 MG TABLET PO SCH ×2 (17:35→22:14)
[2021-05-13] MEDS ORDERED: methaDONE HCL 10 MG TABLET (FOR DETOX USE ONLY) PO ONE (18:00)
[2021-05-13] MEDS: THIAMINE HCL 100 MG TABLET (FP) PO SCH (22:14)
[2021-05-13] MEDS: MELATONIN 5 MG TABLETS PO SCH (22:14)
[2021-05-13] MEDS: ATORVASTATIN CA 20 MG TABLET (FP) PO SCH (22:14)
[2021-05-13] MEDS: METHOCARBAMOL 500 MG TABLET PO PRN (22:16)
[2021-05-13] MEDS: BUDESONIDE/FORMETEROL FUMARATE 80/4.5 mcg INHALER IH SCH (22:18)
[2021-05-13] MEDS ORDERED: ALBUTEROL SO4 HFA INHALER IH PRN (23:02)
[2021-05-14] MEDS: diazePAM 5 MG TABLET PO SCH ×4 (06:08→22:15)
[2021-05-14] MEDS ORDERED: methaDONE 40 MG, methaDONE 20 MG PO ONE (10:15)
[2021-05-14] MEDS ORDERED: methaDONE HCL 40 MG DISPERSABLE TABLET PO SCH (10:15)
[2021-05-14] MEDS: PRENATAL VITAMINS W/ FOLIC ACID TABLET (FP) PO SCH (10:41)
[2021-05-14] MEDS: BUDESONIDE/FORMETEROL FUMARATE 80/4.5 mcg INHALER IH SCH ×2 (10:41→22:16)
[2021-05-14] MEDS: ASPIRIN 81 MG CHEWABLE TABLETS PO SCH (10:41)
[2021-05-14] MEDS ORDERED: methaDONE HCL 40 MG DISPERSABLE TABLET ONE (10:42)
[2021-05-14] MEDS ORDERED: methaDONE HCL 10 MG TABLET ONE (10:42)
[2021-05-14 12:19] LABS: HEMATOCRIT 39.7 % (35.4-49); HEMOGLOBIN 13.6 GM/dL (11.7-16.9); MCH 33.7 pg (25.7-33.7); MCHC 34.2 g/dl (32.0-35.9); MEAN CELL VOLUME 98.3 fl (80-96); MEAN PLT VOLUME 8.1 fl (7.5-11.1); PLATELET COUNT 369 10^3/uL (134-434); RBC 4.04 M/mm3 (4.00-5.60); RDW 15.3 % (11.9-15.9); WHITE BLOOD COUNT 9.7 K/mm3 (4.0-10.0)
[2021-05-14 12:26] LABS: CALCIUM 9.4 mg/dL (8.5-10.1); CREATININE 0.7 mg/dL (0.55-1.3)
[2021-05-14 12:27] LABS: ALBUMIN 3.4 g/dl (3.4-5.0)
[2021-05-14 12:32] LABS: BILIRUBIN,TOTAL 0.4 mg/dL (0.2-1); TOT PROT 7.7 g/dl (6.4-8.2)
[2021-05-14] MEDS: THIAMINE HCL 100 MG TABLET (FP) PO SCH (22:15)
[2021-05-14] MEDS: MELATONIN 5 MG TABLETS PO SCH (22:15)
[2021-05-14] MEDS: ATORVASTATIN CA 20 MG TABLET (FP) PO SCH (22:15)
[2021-05-15] MEDS ORDERED: methaDONE HCL 10 MG TABLET ONE (04:10)
[2021-05-15] MEDS ORDERED: methaDONE HCL 40 MG DISPERSABLE TABLET ONE (04:10)
[2021-05-15] MEDS: methaDONE 40 MG, methaDONE 20 MG PO SCH (05:19)
[2021-05-15] MEDS: diazePAM 5 MG TABLET PO SCH ×3 (05:20→22:02)
[2021-05-15] MEDS: ASPIRIN 81 MG CHEWABLE TABLETS PO SCH (10:24)
[2021-05-15] MEDS: METHOCARBAMOL 500 MG TABLET PO PRN ×2 (10:24→22:03)
[2021-05-15] MEDS: PRENATAL VITAMINS W/ FOLIC ACID TABLET (FP) PO SCH (10:24)
[2021-05-15] MEDS: BUDESONIDE/FORMETEROL FUMARATE 80/4.5 mcg INHALER IH SCH ×2 (10:24→22:03)
[2021-05-15] MEDS: diazePAM 5 MG TABLET PO PRN (17:58)
[2021-05-15] MEDS: MELATONIN 5 MG TABLETS PO SCH (22:02)
[2021-05-15] MEDS: ATORVASTATIN CA 20 MG TABLET (FP) PO SCH (22:02)
[2021-05-15] MEDS: THIAMINE HCL 100 MG TABLET (FP) PO SCH (22:02)
[2021-05-16] MEDS ORDERED: methaDONE HCL 10 MG TABLET ONE (04:05)
[2021-05-16] MEDS ORDERED: methaDONE HCL 40 MG DISPERSABLE TABLET ONE (04:06)
[2021-05-16] MEDS: diazePAM 5 MG TABLET PO SCH ×2 (07:33→17:34)
[2021-05-16] MEDS: methaDONE 40 MG, methaDONE 20 MG PO SCH (07:33)
[2021-05-16] MEDS: PRENATAL VITAMINS W/ FOLIC ACID TABLET (FP) PO SCH (10:32)
[2021-05-16] MEDS: ASPIRIN 81 MG CHEWABLE TABLETS PO SCH (10:32)
[2021-05-16] MEDS: BUDESONIDE/FORMETEROL FUMARATE 80/4.5 mcg INHALER IH SCH ×2 (10:32→23:29)
[2021-05-16] MEDS: diazePAM 5 MG TABLET PO PRN (10:34)
[2021-05-16] MEDS: MELATONIN 5 MG TABLETS PO SCH (23:29)
[2021-05-16] MEDS: THIAMINE HCL 100 MG TABLET (FP) PO SCH (23:29)
[2021-05-16] MEDS: ATORVASTATIN CA 20 MG TABLET (FP) PO SCH (23:29)
[2021-05-17] MEDS ORDERED: methaDONE HCL 40 MG DISPERSABLE TABLET ONE (04:34)
[2021-05-17] MEDS ORDERED: methaDONE HCL 10 MG TABLET ONE (04:34)
[2021-05-17] MEDS ORDERED: diazePAM 5 MG TABLET PO ONE (06:00)
[2021-05-17] MEDS: methaDONE 40 MG, methaDONE 20 MG PO SCH (06:22)
[2021-05-17 09:39] VITALS: BP 136/86; PULSE 67; TEMP 97.1
[2021-05-17] MEDS: ASPIRIN 81 MG CHEWABLE TABLETS PO SCH (09:54)
[2021-05-17] MEDS: PRENATAL VITAMINS W/ FOLIC ACID TABLET (FP) PO SCH (09:54)
[2021-05-17] MEDS: BUDESONIDE/FORMETEROL FUMARATE 80/4.5 mcg INHALER IH SCH (09:55)
== END 2021-05-17 10:00 | disposition other institution (70) | DRG 773 ==
LOC: YASAS 12:52 → Y3N 15:58
PROVIDERS: ADMIT Allergy & Immunology; ATTEND Allergy & Immunology
PROC: HZ2ZZZZ Detoxification Services for Substance Abuse Treatment (ICD-10-PCS; principal; 2021-05-13)
DX: F11.23 Opioid dependence with withdrawal (principal); F10.230 Alcohol dependence with withdrawal, uncomplicated; F12.20 Cannabis dependence, uncomplicated; F17.210 Nicotine dependence, cigarettes, uncomplicated; E78.5 Hyperlipidemia, unspecified; I10 Essential (primary) hypertension; J45.20 Mild intermittent asthma, uncomplicated; J43.8 Other emphysema; R74.8 Abnormal levels of other serum enzymes; Z86.73 Personal history of transient ischemic attack (TIA), and cerebral infarction without residual deficits; Z86.2 Personal history of diseases of the blood and blood-forming organs and certain disorders involving the immune mechanism
CPT/HCPCS: 36415; 80053; 85027; 86780; C9803; U0003; U0005

== ENCOUNTER 2021-07-06 12:48 | Inpatient (IN) | payer OTHER ==
[2021-07-06] MEDS ORDERED: LORazepam 1 MG TABLET PO PRN (19:15)
[2021-07-06] MEDS ORDERED: MENTHOL/PHENOL 1 EACH UD MM PRN (19:15)
[2021-07-06] MEDS ORDERED: ONDANSETRON *ODT* 4 MG TABLET SL PRN (19:15)
[2021-07-06] MEDS ORDERED: NICOTINE 10 MG CARTRIDGE (INHALER) IH PRN (19:15)
[2021-07-06] MEDS ORDERED: BISMUTH SUBSALICYLATE 524 MG/30 ML PO PRN (19:15)
[2021-07-06] MEDS ORDERED: MAG HYDROX/AL HYDROX/SIMETH 30 ML UNIT-DOSE CUP PO PRN (19:15)
[2021-07-06] MEDS ORDERED: MAGNESIUM HYDROX 2400MG/30ML ORAL SUSPENSION 30 ML CUP PO PRN (19:15)
[2021-07-06] MEDS ORDERED: IBUPROFEN 400 MG TABLET (FP) PO PRN (19:15)
[2021-07-06] MEDS ORDERED: ACETAMINOPHEN 325 MG TABLET (FP) PO PRN ×2 (19:15)
[2021-07-06] MEDS ORDERED: MAGNESIUM CITRATE 300 ML BOTTLE PO PRN (19:15)
[2021-07-06 21:14] VITALS: BMI 21.8
[2021-07-06] MEDS ORDERED: methaDONE HCL 10 MG TABLET ONE (21:21)
[2021-07-06] MEDS: THIAMINE HCL 100 MG TABLET (FP) PO SCH (21:29)
[2021-07-06] MEDS: amLODIPine BESYLATE 5 MG TABLET (FP) PO SCH (21:29)
[2021-07-06] MEDS: MELATONIN 5 MG TABLETS PO SCH (21:30)
[2021-07-06] MEDS: METHOCARBAMOL 500 MG TABLET PO PRN (21:30)
[2021-07-06] MEDS: BUDESONIDE/FORMETEROL FUMARATE 160/4.5 mcg INHALER IH SCH (21:32)
[2021-07-06] MEDS: ALBUTEROL SO4 HFA INHALER IH PRN (21:33)
[2021-07-06] MEDS ORDERED: hydrOXYzine PAMOATE 25 MG CAPSULE (FP) PO SCH (22:00)
[2021-07-06] MEDS: LORazepam 2 MG TABLET PO SCH (22:08)
[2021-07-07] MEDS: LORazepam 2 MG TABLET PO SCH ×4 (06:09→22:26)
[2021-07-07] MEDS ORDERED: methaDONE HCL 10 MG TABLET PO ONE (08:40)
[2021-07-07] MEDS ORDERED: methaDONE 40 MG, methaDONE 20 MG PO ONE (09:20)
[2021-07-07] MEDS ORDERED: methaDONE HCL 40 MG DISPERSABLE TABLET ONE (09:42)
[2021-07-07] MEDS ORDERED: PRENATAL VITAMINS W/ FOLIC ACID TABLET (FP) PO SCH (10:00)
[2021-07-07] MEDS: BUDESONIDE/FORMETEROL FUMARATE 160/4.5 mcg INHALER IH SCH ×2 (10:29→22:26)
[2021-07-07] MEDS: ALBUTEROL SO4 HFA INHALER IH PRN (10:29)
[2021-07-07] MEDS: METHOCARBAMOL 500 MG TABLET PO PRN ×2 (10:30→22:26)
[2021-07-07] MEDS: MULTIVITAMINS (DAILY MVI) TABLET (FP) PO SCH (10:31)
[2021-07-07] MEDS: amLODIPine BESYLATE 5 MG TABLET (FP) PO SCH (10:32)
[2021-07-07] MEDS: ASPIRIN 81 MG CHEWABLE TABLETS PO SCH (10:32)
[2021-07-07 11:35] LABS: HEMATOCRIT 37.6 % (35.4-49); HEMOGLOBIN 12.9 GM/dL (11.7-16.9); MCH 33.7 pg (25.7-33.7); MCHC 34.3 g/dl (32.0-35.9); MEAN CELL VOLUME 98.2 fl (80-96); MEAN PLT VOLUME 7.6 fl (7.5-11.1); PLATELET COUNT 342 10^3/uL (134-434); RBC 3.83 M/mm3 (4.00-5.60); RDW 15.1 % (11.9-15.9); WHITE BLOOD COUNT 7.1 K/mm3 (4.0-10.0)
[2021-07-07 12:05] LABS: ALBUMIN 3.2 g/dl (3.4-5.0); BLOOD UREA NITROGEN 9.8 mg/dL (7-18)
[2021-07-07 12:09] LABS: BILIRUBIN,TOTAL 0.7 mg/dL (0.2-1); CREATININE 0.7 mg/dL (0.55-1.3); TOT PROT 7.2 g/dl (6.4-8.2)
[2021-07-07 12:10] LABS: CALCIUM 9.4 mg/dL (8.5-10.1)
[2021-07-07] MEDS: THIAMINE HCL 100 MG TABLET (FP) PO SCH (22:26)
[2021-07-07] MEDS: MELATONIN 5 MG TABLETS PO SCH (22:26)
[2021-07-08] MEDS ORDERED: methaDONE HCL 10 MG TABLET ONE (04:02)
[2021-07-08] MEDS ORDERED: methaDONE HCL 40 MG DISPERSABLE TABLET ONE (04:02)
[2021-07-08] MEDS ORDERED: methaDONE HCL 40 MG DISPERSABLE TABLET PO SCH (06:00)
[2021-07-08] MEDS: methaDONE 40 MG, methaDONE 20 MG PO SCH (06:39)
[2021-07-08] MEDS: LORazepam 1 MG TABLET PO SCH ×4 (06:39→22:09)
[2021-07-08] MEDS: ASPIRIN 81 MG CHEWABLE TABLETS PO SCH (10:31)
[2021-07-08] MEDS: MULTIVITAMINS (DAILY MVI) TABLET (FP) PO SCH (10:31)
[2021-07-08] MEDS: amLODIPine BESYLATE 5 MG TABLET (FP) PO SCH (10:31)
[2021-07-08] MEDS: BUDESONIDE/FORMETEROL FUMARATE 160/4.5 mcg INHALER IH SCH ×2 (10:32→22:08)
[2021-07-08] MEDS: THIAMINE HCL 100 MG TABLET (FP) PO SCH (22:08)
[2021-07-08] MEDS: MELATONIN 5 MG TABLETS PO SCH (22:08)
[2021-07-08] MEDS: METHOCARBAMOL 500 MG TABLET PO PRN (22:11)
[2021-07-09] MEDS ORDERED: LORazepam 0.5 MG TABLET PO PRN
[2021-07-09] MEDS ORDERED: methaDONE HCL 10 MG TABLET ONE (04:05)
[2021-07-09] MEDS ORDERED: methaDONE HCL 40 MG DISPERSABLE TABLET ONE (04:06)
[2021-07-09] MEDS: methaDONE 40 MG, methaDONE 20 MG PO SCH (06:04)
[2021-07-09] MEDS: LORazepam 0.5 MG TABLET PO SCH ×2 (06:05→10:25)
[2021-07-09] MEDS: BUDESONIDE/FORMETEROL FUMARATE 160/4.5 mcg INHALER IH SCH (10:24)
[2021-07-09] MEDS: amLODIPine BESYLATE 5 MG TABLET (FP) PO SCH (10:25)
[2021-07-09] MEDS: ASPIRIN 81 MG CHEWABLE TABLETS PO SCH (10:25)
[2021-07-09] MEDS: MULTIVITAMINS (DAILY MVI) TABLET (FP) PO SCH (10:53)
[2021-07-09 13:11] VITALS: BP 131/83; PULSE 74; TEMP 96.8
[2021-07-10] MEDS ORDERED: LORazepam 0.5 MG TABLET PO ONE (05:00)
== END 2021-07-09 16:45 | disposition home or self-care (01) | DRG 773 ==
LOC: YASAS 12:48 → Y3N 18:51
PROVIDERS: ADMIT Allergy & Immunology; ATTEND Allergy & Immunology
PROC: HZ2ZZZZ Detoxification Services for Substance Abuse Treatment (ICD-10-PCS; principal; 2021-07-06)
DX: F10.230 Alcohol dependence with withdrawal, uncomplicated (principal); F11.20 Opioid dependence, uncomplicated; F17.210 Nicotine dependence, cigarettes, uncomplicated; I10 Essential (primary) hypertension; E78.5 Hyperlipidemia, unspecified; J44.9 Chronic obstructive pulmonary disease, unspecified; K74.60 Unspecified cirrhosis of liver; Z86.73 Personal history of transient ischemic attack (TIA), and cerebral infarction without residual deficits; Z91.013 Allergy to seafood
CPT/HCPCS: 36415; 80053; 85027; 86780; C9803; U0003; U0005

== ENCOUNTER 2021-11-25 12:04 | Inpatient (IN) | payer OTHER ==
[2021-11-25] MEDS ORDERED: ACETAMINOPHEN 325 MG TABLET (FP) PO PRN ×2 (13:36)
[2021-11-25] MEDS ORDERED: MAGNESIUM CITRATE 300 ML BOTTLE PO PRN (13:36)
[2021-11-25] MEDS ORDERED: MAG HYDROX/AL HYDROX/SIMETH 30 ML UNIT-DOSE CUP PO PRN (13:36)
[2021-11-25] MEDS ORDERED: IBUPROFEN 400 MG TABLET (FP) PO PRN (13:36)
[2021-11-25] MEDS ORDERED: MAGNESIUM HYDROX 2400MG/30ML ORAL SUSPENSION 30 ML CUP PO PRN (13:36)
[2021-11-25] MEDS ORDERED: NICOTINE 10 MG CARTRIDGE (INHALER) IH PRN (13:36)
[2021-11-25] MEDS ORDERED: chlordiazePOXIDE HCL 25 MG CAPSULE PO PRN (13:36)
[2021-11-25] MEDS ORDERED: BISMUTH SUBSALICYLATE 524 MG/30 ML PO PRN (13:36)
[2021-11-25] MEDS ORDERED: MENTHOL/PHENOL 1 EACH UD MM PRN (13:36)
[2021-11-25] MEDS ORDERED: LOPERAMIDE HCL 2 MG CAPSULE PO PRN (13:36)
[2021-11-25] MEDS ORDERED: ONDANSETRON *ODT* 4 MG TABLET SL PRN (13:36)
[2021-11-25 13:46] VITALS: BMI 24.7
[2021-11-25] MEDS: amLODIPine BESYLATE 5 MG TABLET (FP) PO SCH (15:26)
[2021-11-25] MEDS: hydrOXYzine PAMOATE 25 MG CAPSULE (FP) PO SCH ×3 (15:26→22:30)
[2021-11-25] MEDS: BUDESONIDE/FORMETEROL FUMARATE 160/4.5 mcg INHALER IH SCH ×2 (15:32→23:42)
[2021-11-25] MEDS: chlordiazePOXIDE HCL 25 MG CAPSULE PO SCH ×2 (18:16→22:31)
[2021-11-25] MEDS ORDERED: MELATONIN 5 MG TABLETS PO SCH (22:00)
[2021-11-25] MEDS: METHOCARBAMOL 500 MG TABLET PO PRN (22:30)
[2021-11-25] MEDS: THIAMINE HCL 100 MG TABLET (FP) PO SCH (22:30)
[2021-11-25] MEDS: MELATONIN 5 MG TABLETS PO SCH (22:30)
[2021-11-25] MEDS: ALBUTEROL SO4 HFA INHALER IH PRN (23:42)
[2021-11-26] MEDS: chlordiazePOXIDE HCL 25 MG CAPSULE PO SCH ×4 (05:51→22:52)
[2021-11-26] MEDS: hydrOXYzine PAMOATE 25 MG CAPSULE (FP) PO SCH ×5 (05:51→22:52)
[2021-11-26] MEDS: ASPIRIN 81 MG CHEWABLE TABLETS PO SCH (10:26)
[2021-11-26] MEDS: BUDESONIDE/FORMETEROL FUMARATE 160/4.5 mcg INHALER IH SCH ×2 (10:26→22:51)
[2021-11-26] MEDS: PRENATAL VITAMINS W/ FOLIC ACID TABLET (FP) PO SCH (10:26)
[2021-11-26] MEDS: amLODIPine BESYLATE 5 MG TABLET (FP) PO SCH (10:26)
[2021-11-26 10:45] LABS: HEMATOCRIT 41.3 % (35.4-49); HEMOGLOBIN 13.9 GM/dL (11.7-16.9); MCH 34.3 pg (25.7-33.7); MCHC 33.7 g/dl (32.0-35.9); MEAN CELL VOLUME 101.6 fl (80-96); MEAN PLT VOLUME 7.7 fl (7.5-11.1); PLATELET COUNT 313 10^3/uL (134-434); RBC 4.07 M/mm3 (4.00-5.60); RDW 15.1 % (11.9-15.9); WHITE BLOOD COUNT 6.5 K/mm3 (4.0-10.0)
[2021-11-26 11:21] LABS: CALCIUM 9.5 mg/dL (8.5-10.1)
[2021-11-26 11:22] LABS: ALBUMIN 3.2 g/dl (3.4-5.0); BLOOD UREA NITROGEN 13.7 mg/dL (7-18)
[2021-11-26 11:25] LABS: CREATININE 0.9 mg/dL (0.55-1.3)
[2021-11-26 11:26] LABS: BILIRUBIN,TOTAL 0.4 mg/dL (0.2-1)
[2021-11-26 11:27] LABS: TOT PROT 7.2 g/dl (6.4-8.2)
[2021-11-26] MEDS ORDERED: methaDONE HCL 10 MG TABLET ONE (12:28)
[2021-11-26] MEDS ORDERED: methaDONE HCL 40 MG DISPERSABLE TABLET ONE (12:29)
[2021-11-26] MEDS ORDERED: methaDONE 40 MG, methaDONE 20 MG PO ONE (12:30)
[2021-11-26] MEDS ORDERED: methaDONE HCL 10 MG TABLET PO SCH (12:30)
[2021-11-26] MEDS: ALBUTEROL SO4 HFA INHALER IH PRN ×2 (18:47→22:51)
[2021-11-26] MEDS: MELATONIN 5 MG TABLETS PO SCH (22:52)
[2021-11-26] MEDS: THIAMINE HCL 100 MG TABLET (FP) PO SCH (22:52)
[2021-11-26] MEDS: METHOCARBAMOL 500 MG TABLET PO PRN (22:53)
[2021-11-27] MEDS ORDERED: methaDONE HCL 40 MG DISPERSABLE TABLET ONE (04:35)
[2021-11-27] MEDS ORDERED: methaDONE HCL 10 MG TABLET ONE (04:35)
[2021-11-27] MEDS: chlordiazePOXIDE HCL 25 MG CAPSULE PO SCH ×4 (05:35→23:50)
[2021-11-27] MEDS: methaDONE 40 MG, methaDONE 20 MG PO SCH (05:36)
[2021-11-27] MEDS: hydrOXYzine PAMOATE 25 MG CAPSULE (FP) PO SCH ×5 (05:37→23:50)
[2021-11-27 10:07] LABS: SARS-CoV-2 NAA Not Detected (Not Detected)
[2021-11-27] MEDS: ASPIRIN 81 MG CHEWABLE TABLETS PO SCH (10:35)
[2021-11-27] MEDS: PRENATAL VITAMINS W/ FOLIC ACID TABLET (FP) PO SCH (10:35)
[2021-11-27] MEDS: amLODIPine BESYLATE 5 MG TABLET (FP) PO SCH (10:35)
[2021-11-27] MEDS: BUDESONIDE/FORMETEROL FUMARATE 160/4.5 mcg INHALER IH SCH ×2 (10:35→23:49)
[2021-11-27] MEDS: MELATONIN 5 MG TABLETS PO SCH (23:49)
[2021-11-27] MEDS: THIAMINE HCL 100 MG TABLET (FP) PO SCH (23:50)
[2021-11-28] MEDS ORDERED: chlordiazePOXIDE HCL 10 MG CAPSULE PO PRN
[2021-11-28] MEDS: ALBUTEROL SO4 HFA INHALER IH PRN ×3 (01:35→18:26)
[2021-11-28] MEDS ORDERED: methaDONE HCL 10 MG TABLET ONE (04:54)
[2021-11-28] MEDS ORDERED: methaDONE HCL 40 MG DISPERSABLE TABLET ONE (04:54)
[2021-11-28] MEDS: methaDONE 40 MG, methaDONE 20 MG PO SCH (06:30)
[2021-11-28] MEDS: hydrOXYzine PAMOATE 25 MG CAPSULE (FP) PO SCH ×5 (06:31→22:49)
[2021-11-28] MEDS: chlordiazePOXIDE HCL 10 MG CAPSULE PO SCH ×4 (06:31→22:48)
[2021-11-28] MEDS: ASPIRIN 81 MG CHEWABLE TABLETS PO SCH (10:30)
[2021-11-28] MEDS: amLODIPine BESYLATE 5 MG TABLET (FP) PO SCH (10:30)
[2021-11-28] MEDS: BUDESONIDE/FORMETEROL FUMARATE 160/4.5 mcg INHALER IH SCH ×2 (10:34→22:48)
[2021-11-28] MEDS: PRENATAL VITAMINS W/ FOLIC ACID TABLET (FP) PO SCH (11:00)
[2021-11-28 12:42] LABS: BASO % 1.2 % (0-2.0); EOS % 9.9 % (0-4.5); HEMATOCRIT 40.1 % (35.4-49); HEMOGLOBIN 13.6 GM/dL (11.7-16.9); MCH 34.4 pg (25.7-33.7); MCHC 33.9 g/dl (32.0-35.9); MEAN CELL VOLUME 101.4 fl (80-96); MEAN PLT VOLUME 7.9 fl (7.5-11.1); MONO % 11.4 % (3.8-10.2); NEUT % 43.5 % (42.8-82.8); PLATELET COUNT 291 10^3/uL (134-434); RBC 3.95 M/mm3 (4.00-5.60); RDW 15.3 % (11.9-15.9); WHITE BLOOD COUNT 6.8 K/mm3 (4.0-10.0)
[2021-11-28] MEDS: THIAMINE HCL 100 MG TABLET (FP) PO SCH (22:49)
[2021-11-28] MEDS: METHOCARBAMOL 500 MG TABLET PO PRN (22:49)
[2021-11-28] MEDS: MELATONIN 5 MG TABLETS PO SCH (22:49)
[2021-11-29] MEDS ORDERED: methaDONE HCL 10 MG TABLET ONE (04:41)
[2021-11-29] MEDS ORDERED: methaDONE HCL 40 MG DISPERSABLE TABLET ONE (04:42)
[2021-11-29] MEDS: chlordiazePOXIDE HCL 10 MG CAPSULE PO SCH ×2 (06:37→18:05)
[2021-11-29] MEDS: hydrOXYzine PAMOATE 25 MG CAPSULE (FP) PO SCH ×5 (06:37→22:04)
[2021-11-29] MEDS: methaDONE 40 MG, methaDONE 20 MG PO SCH (06:37)
[2021-11-29] MEDS: ASPIRIN 81 MG CHEWABLE TABLETS PO SCH (10:39)
[2021-11-29] MEDS: amLODIPine BESYLATE 5 MG TABLET (FP) PO SCH (10:39)
[2021-11-29] MEDS: BUDESONIDE/FORMETEROL FUMARATE 160/4.5 mcg INHALER IH SCH ×2 (10:40→22:03)
[2021-11-29] MEDS: PRENATAL VITAMINS W/ FOLIC ACID TABLET (FP) PO SCH (10:40)
[2021-11-29] MEDS: THIAMINE HCL 100 MG TABLET (FP) PO SCH (22:04)
[2021-11-29] MEDS: METHOCARBAMOL 500 MG TABLET PO PRN (22:04)
[2021-11-29] MEDS: MELATONIN 5 MG TABLETS PO SCH (22:04)
[2021-11-30] MEDS ORDERED: methaDONE HCL 10 MG TABLET ONE (04:40)
[2021-11-30] MEDS ORDERED: methaDONE HCL 40 MG DISPERSABLE TABLET ONE (04:40)
[2021-11-30] MEDS ORDERED: chlordiazePOXIDE HCL 10 MG CAPSULE PO ONE (05:00)
[2021-11-30] MEDS: methaDONE 40 MG, methaDONE 20 MG PO SCH (05:36)
[2021-11-30] MEDS: hydrOXYzine PAMOATE 25 MG CAPSULE (FP) PO SCH ×2 (05:37→10:43)
[2021-11-30 09:04] VITALS: BP 124/78; PULSE 73; TEMP 96.8
[2021-11-30] MEDS: BUDESONIDE/FORMETEROL FUMARATE 160/4.5 mcg INHALER IH SCH (10:43)
[2021-11-30] MEDS: ASPIRIN 81 MG CHEWABLE TABLETS PO SCH (10:43)
[2021-11-30] MEDS: amLODIPine BESYLATE 5 MG TABLET (FP) PO SCH (10:43)
[2021-11-30] MEDS: PRENATAL VITAMINS W/ FOLIC ACID TABLET (FP) PO SCH (10:45)
== END 2021-11-30 11:38 | disposition other institution (70) | DRG 773 ==
LOC: YASAS 12:04 → Y3N 14:09
PROVIDERS: ADMIT Allergy & Immunology; ATTEND Allergy & Immunology
PROC: HZ2ZZZZ Detoxification Services for Substance Abuse Treatment (ICD-10-PCS; principal; 2021-11-25)
DX: F10.230 Alcohol dependence with withdrawal, uncomplicated (principal); F11.20 Opioid dependence, uncomplicated; F17.210 Nicotine dependence, cigarettes, uncomplicated; F19.282 Other psychoactive substance dependence with psychoactive substance-induced sleep disorder; F19.24 Other psychoactive substance dependence with psychoactive substance-induced mood disorder; F43.21 Adjustment disorder with depressed mood; E78.5 Hyperlipidemia, unspecified; I10 Essential (primary) hypertension; J44.9 Chronic obstructive pulmonary disease, unspecified
CPT/HCPCS: 36415; 80053; 85025; 85027; 86780; 87811; C9803-CS; U0003; U0005

== ENCOUNTER 2021-11-30 11:01 | Inpatient (IN) | payer OTHER ==
[2021-11-30] MEDS ORDERED: MAG HYDROX/AL HYDROX/SIMETH 30 ML UNIT-DOSE CUP PO PRN (13:45)
[2021-11-30] MEDS ORDERED: MAGNESIUM HYDROX 2400MG/30ML ORAL SUSPENSION 30 ML CUP PO PRN (13:45)
[2021-11-30] MEDS ORDERED: ACETAMINOPHEN 325 MG TABLET (FP) PO PRN (13:45)
[2021-11-30] MEDS ORDERED: IBUPROFEN 400 MG TABLET (FP) PO PRN (13:45)
[2021-11-30] MEDS ORDERED: MAGNESIUM CITRATE 300 ML BOTTLE PO PRN (13:45)
[2021-11-30] MEDS ORDERED: P-EPHED 60MG/TRIPROLIDI 2.5MG TABLET PO PRN (13:45)
[2021-11-30] MEDS ORDERED: guaiFENesin 200 MG/10 ML 10 ML UNIT-DOSE CUPS PO PRN (13:45)
[2021-11-30] MEDS ORDERED: NICOTINE 10 MG CARTRIDGE (INHALER) IH PRN (13:45)
[2021-11-30] MEDS ORDERED: LOPERAMIDE HCL 2 MG CAPSULE PO PRN (13:45)
[2021-11-30] MEDS ORDERED: MENTHOL/PHENOL 1 EACH UD MM PRN (13:45)
[2021-11-30] MEDS ORDERED: hydrOXYzine PAMOATE 25 MG CAPSULE (FP) PO PRN (13:46)
[2021-11-30] MEDS ORDERED: ALBUTEROL SO4 HFA INHALER IH PRN (13:47)
[2021-11-30] MEDS: THIAMINE HCL 100 MG TABLET (FP) PO SCH (21:27)
[2021-11-30] MEDS: BUDESONIDE/FORMETEROL FUMARATE 160/4.5 mcg INHALER IH SCH (21:29)
[2021-11-30] MEDS ORDERED: MELATONIN 5 MG TABLETS PO SCH (22:00)
[2021-12-01] MEDS ORDERED: methaDONE HCL 10 MG TABLET PO ONE (07:03)
[2021-12-01] MEDS ORDERED: methaDONE HCL 40 MG DISPERSABLE TABLET PO SCH (07:30)
[2021-12-01] MEDS ORDERED: methaDONE HCL 40 MG DISPERSABLE TABLET ONE (07:38)
[2021-12-01] MEDS ORDERED: methaDONE HCL 10 MG TABLET ONE (07:38)
[2021-12-01] MEDS: methaDONE 40 MG, methaDONE 20 MG PO SCH (07:40)
[2021-12-01] MEDS: BUDESONIDE/FORMETEROL FUMARATE 160/4.5 mcg INHALER IH SCH ×2 (10:25→21:17)
[2021-12-01] MEDS: PRENATAL VITAMINS W/ FOLIC ACID TABLET (FP) PO SCH (10:25)
[2021-12-01] MEDS: ASPIRIN 81 MG CHEWABLE TABLETS PO SCH (10:25)
[2021-12-01] MEDS: NICOTINE 7 MG/24 HOURS TOPICAL PATCH TD SCH (10:25)
[2021-12-01] MEDS: amLODIPine BESYLATE 5 MG TABLET (FP) PO SCH (10:28)
[2021-12-01] MEDS ORDERED: MELATONIN 5 MG TABLETS PO SCH (20:22)
[2021-12-01] MEDS: THIAMINE HCL 100 MG TABLET (FP) PO SCH (21:14)
[2021-12-02] MEDS ORDERED: methaDONE HCL 40 MG DISPERSABLE TABLET ONE (03:19)
[2021-12-02] MEDS ORDERED: methaDONE HCL 10 MG TABLET ONE (03:19)
[2021-12-02] MEDS ORDERED: methaDONE HCL 10 MG TABLET PO ONE (06:00)
[2021-12-02] MEDS: methaDONE 40 MG, methaDONE 20 MG PO SCH (06:16)
[2021-12-02 06:33] VITALS: TEMP 97.1
[2021-12-02] MEDS ORDERED: hydrOXYzine PAMOATE 25 MG CAPSULE (FP) PO PRN (08:36)
[2021-12-02] MEDS: ASPIRIN 81 MG CHEWABLE TABLETS PO SCH (10:08)
[2021-12-02] MEDS: PRENATAL VITAMINS W/ FOLIC ACID TABLET (FP) PO SCH (10:09)
[2021-12-02] MEDS: NICOTINE 7 MG/24 HOURS TOPICAL PATCH TD SCH (10:09)
[2021-12-02] MEDS: amLODIPine BESYLATE 5 MG TABLET (FP) PO SCH (10:09)
[2021-12-02] MEDS: BUDESONIDE/FORMETEROL FUMARATE 160/4.5 mcg INHALER IH SCH ×2 (10:10→21:35)
[2021-12-02] MEDS ORDERED: diphenhydrAMINE HCL 25 MG CAPSULE (FP) PO ONE (21:34)
[2021-12-02] MEDS: diphenhydrAMINE HCL 50 MG CAPSULE PO PRN (21:35)
[2021-12-02] MEDS: THIAMINE HCL 100 MG TABLET (FP) PO SCH (21:58)
[2021-12-03] MEDS ORDERED: methaDONE HCL 10 MG TABLET ONE (03:10)
[2021-12-03] MEDS ORDERED: methaDONE HCL 40 MG DISPERSABLE TABLET ONE (03:11)
[2021-12-03] MEDS ORDERED: methaDONE HCL 10 MG TABLET PO SCH (06:00)
[2021-12-03] MEDS: methaDONE 40 MG, methaDONE 20 MG PO SCH (06:23)
[2021-12-03] MEDS: ASPIRIN 81 MG CHEWABLE TABLETS PO SCH (09:38)
[2021-12-03] MEDS: NICOTINE 7 MG/24 HOURS TOPICAL PATCH TD SCH (09:38)
[2021-12-03] MEDS: BUDESONIDE/FORMETEROL FUMARATE 160/4.5 mcg INHALER IH SCH ×2 (09:38→21:32)
[2021-12-03] MEDS: PRENATAL VITAMINS W/ FOLIC ACID TABLET (FP) PO SCH (09:38)
[2021-12-03] MEDS: amLODIPine BESYLATE 5 MG TABLET (FP) PO SCH (09:38)
[2021-12-03] MEDS: THIAMINE HCL 100 MG TABLET (FP) PO SCH (21:33)
[2021-12-03] MEDS ORDERED: diphenhydrAMINE HCL 25 MG CAPSULE (FP) PO ONE (21:34)
[2021-12-03] MEDS: diphenhydrAMINE HCL 50 MG CAPSULE PO PRN (21:34)
[2021-12-04] MEDS ORDERED: methaDONE HCL 40 MG DISPERSABLE TABLET ONE (05:22)
[2021-12-04] MEDS ORDERED: methaDONE HCL 10 MG TABLET ONE (05:22)
[2021-12-04] MEDS: methaDONE 40 MG, methaDONE 20 MG PO SCH (06:29)
[2021-12-04 09:35] VITALS: BP 117/83; PULSE 81
[2021-12-04] MEDS: ASPIRIN 81 MG CHEWABLE TABLETS PO SCH (09:54)
[2021-12-04] MEDS: amLODIPine BESYLATE 5 MG TABLET (FP) PO SCH (09:54)
[2021-12-04] MEDS: BUDESONIDE/FORMETEROL FUMARATE 160/4.5 mcg INHALER IH SCH (09:55)
[2021-12-04] MEDS: NICOTINE 7 MG/24 HOURS TOPICAL PATCH TD SCH (10:53)
[2021-12-04] MEDS: PRENATAL VITAMINS W/ FOLIC ACID TABLET (FP) PO SCH (10:53)
[2021-12-04 14:08] LABS: SARS-CoV-2 NAA Not Detected (Not Detected)
[2021-12-07] MEDS ORDERED: ERGOCALCIFEROL (VIT D2) 50,000 UNIT (1.25 MG) CAPSULE PO SCH (10:00)
== END 2021-12-04 18:19 | disposition home or self-care (01) | DRG 773 ==
LOC: YASAS 11:01 → Y3E 11:02
PROVIDERS: ADMIT Allergy & Immunology; ATTEND Allergy & Immunology
PROC: HZ2ZZZZ Detoxification Services for Substance Abuse Treatment (ICD-10-PCS; principal; 2021-11-30)
DX: F10.20 Alcohol dependence, uncomplicated (principal); F11.20 Opioid dependence, uncomplicated; F17.210 Nicotine dependence, cigarettes, uncomplicated; F19.282 Other psychoactive substance dependence with psychoactive substance-induced sleep disorder; F19.24 Other psychoactive substance dependence with psychoactive substance-induced mood disorder; F32.A Depression, unspecified; I10 Essential (primary) hypertension; J45.909 Unspecified asthma, uncomplicated; G47.00 Insomnia, unspecified; Z91.013 Allergy to seafood
CPT/HCPCS: C9803-CS; U0003; U0005

== ENCOUNTER 2022-02-08 11:52 | Inpatient (IN) | payer OTHER ==
[2022-02-08 12:37] VITALS: BMI 26.6
[2022-02-08] MEDS ORDERED: IBUPROFEN 400 MG TABLET (FP) PO PRN (15:33)
[2022-02-08] MEDS ORDERED: MAG HYDROX/AL HYDROX/SIMETH 30 ML UNIT-DOSE CUP PO PRN (15:33)
[2022-02-08] MEDS ORDERED: DICYCLOMINE HCL 10 MG CAPSULE PO PRN (15:33)
[2022-02-08] MEDS ORDERED: IBUPROFEN 600 MG TABLET (FP) PO PRN (15:33)
[2022-02-08] MEDS ORDERED: BISMUTH SUBSALICYLATE 262 MG/15 ML BTL PO PRN (15:33)
[2022-02-08] MEDS ORDERED: MAGNESIUM HYDROX 2400MG/30ML ORAL SUSPENSION 30 ML CUP PO PRN (15:33)
[2022-02-08] MEDS ORDERED: chlordiazePOXIDE HCL 25 MG CAPSULE PO PRN (15:33)
[2022-02-08] MEDS ORDERED: BENZOCAINE/MENTHOL (CHLORASEPTIC ) LOZENGE MM PRN (15:33)
[2022-02-08] MEDS ORDERED: NICOTINE 10 MG CARTRIDGE (INHALER) IH PRN (15:33)
[2022-02-08] MEDS ORDERED: ONDANSETRON *ODT* 4 MG TABLET SL PRN (15:33)
[2022-02-08] MEDS ORDERED: LOPERAMIDE HCL 2 MG CAPSULE PO PRN (15:33)
[2022-02-08] MEDS ORDERED: ACETAMINOPHEN 325 MG TABLET (FP) PO PRN ×2 (15:33)
[2022-02-08] MEDS ORDERED: METHOCARBAMOL 500 MG TABLET PO PRN (15:33)
[2022-02-08] MEDS ORDERED: NALOXONE HCL (KLOXXADO) 8 MG SPRAY NS PRN (15:33)
[2022-02-08] MEDS ORDERED: MAGNESIUM CITRATE 300 ML BOTTLE PO PRN (15:33)
[2022-02-08] MEDS: ASPIRIN 81 MG CHEWABLE TABLETS PO SCH (17:34)
[2022-02-08] MEDS: hydrOXYzine PAMOATE 25 MG CAPSULE (FP) PO SCH ×2 (17:34→22:13)
[2022-02-08] MEDS: amLODIPine BESYLATE 5 MG TABLET (FP) PO SCH (17:34)
[2022-02-08] MEDS: chlordiazePOXIDE HCL 25 MG CAPSULE PO SCH ×2 (17:34→22:12)
[2022-02-08] MEDS: BUDESONIDE/FORMETEROL FUMARATE 160/4.5 mcg INHALER IH SCH (22:12)
[2022-02-08] MEDS: THIAMINE HCL 100 MG TABLET (FP) PO SCH (22:13)
[2022-02-08] MEDS: MELATONIN 5 MG TABLETS PO SCH (22:13)
[2022-02-09] MEDS: hydrOXYzine PAMOATE 25 MG CAPSULE (FP) PO SCH ×5 (07:14→22:26)
[2022-02-09] MEDS: chlordiazePOXIDE HCL 25 MG CAPSULE PO SCH ×4 (07:14→22:26)
[2022-02-09] MEDS ORDERED: methaDONE HCL 10 MG TABLET PO SCH (09:30)
[2022-02-09] MEDS ORDERED: ERGOCALCIFEROL (VIT D2) 50,000 UNIT (1.25 MG) CAPSULE PO SCH (10:00)
[2022-02-09] MEDS ORDERED: methaDONE HCL 10 MG TABLET ONE (10:02)
[2022-02-09] MEDS ORDERED: methaDONE HCL 40 MG DISPERSABLE TABLET ONE (10:03)
[2022-02-09] MEDS: methaDONE 40 MG, methaDONE 20 MG PO SCH (10:26)
[2022-02-09] MEDS: PRENATAL VITAMINS W/ FOLIC ACID TABLET (FP) PO SCH (10:26)
[2022-02-09] MEDS: ASPIRIN 81 MG CHEWABLE TABLETS PO SCH (10:27)
[2022-02-09] MEDS: amLODIPine BESYLATE 5 MG TABLET (FP) PO SCH (10:28)
[2022-02-09] MEDS: BUDESONIDE/FORMETEROL FUMARATE 160/4.5 mcg INHALER IH SCH ×2 (10:30→22:25)
[2022-02-09 15:51] LABS: HEMATOCRIT 42.8 % (35.4-49); HEMOGLOBIN 14.2 GM/dL (11.7-16.9); MCH 31.4 pg (25.7-33.7); MCHC 33.3 g/dl (32.0-35.9); MEAN CELL VOLUME 94.5 fl (80-96); MEAN PLT VOLUME 7.8 fl (7.5-11.1); PLATELET COUNT 325 10^3/uL (134-434); RBC 4.53 M/mm3 (4.00-5.60); RDW 15.6 % (11.9-15.9); WHITE BLOOD COUNT 7.6 K/mm3 (4.0-10.0)
[2022-02-09 15:56] LABS: CALCIUM 9.6 mg/dL (8.5-10.1)
[2022-02-09 15:57] LABS: ALBUMIN 3.3 g/dl (3.4-5.0); BLOOD UREA NITROGEN 14.9 mg/dL (7-18)
[2022-02-09 16:00] LABS: CREATININE 0.7 mg/dL (0.55-1.3)
[2022-02-09 16:01] LABS: BILIRUBIN,TOTAL 0.2 mg/dL (0.2-1)
[2022-02-09] MEDS: THIAMINE HCL 100 MG TABLET (FP) PO SCH (22:26)
[2022-02-09] MEDS: MELATONIN 5 MG TABLETS PO SCH (22:26)
[2022-02-10] MEDS ORDERED: methaDONE HCL 10 MG TABLET ONE (04:34)
[2022-02-10] MEDS ORDERED: methaDONE HCL 40 MG DISPERSABLE TABLET ONE (04:35)
[2022-02-10] MEDS: chlordiazePOXIDE HCL 25 MG CAPSULE PO SCH ×4 (06:35→22:13)
[2022-02-10] MEDS: methaDONE 40 MG, methaDONE 20 MG PO SCH (06:35)
[2022-02-10] MEDS: hydrOXYzine PAMOATE 25 MG CAPSULE (FP) PO SCH ×5 (06:38→22:13)
[2022-02-10] MEDS: PRENATAL VITAMINS W/ FOLIC ACID TABLET (FP) PO SCH (10:11)
[2022-02-10] MEDS: BUDESONIDE/FORMETEROL FUMARATE 160/4.5 mcg INHALER IH SCH ×2 (10:11→22:15)
[2022-02-10] MEDS: ASPIRIN 81 MG CHEWABLE TABLETS PO SCH (10:12)
[2022-02-10] MEDS: amLODIPine BESYLATE 5 MG TABLET (FP) PO SCH (10:13)
[2022-02-10] MEDS: THIAMINE HCL 100 MG TABLET (FP) PO SCH (22:13)
[2022-02-10] MEDS: MELATONIN 5 MG TABLETS PO SCH (22:13)
[2022-02-11] MEDS ORDERED: chlordiazePOXIDE HCL 10 MG CAPSULE PO PRN
[2022-02-11] MEDS ORDERED: methaDONE HCL 10 MG TABLET ONE (03:59)
[2022-02-11] MEDS ORDERED: methaDONE HCL 40 MG DISPERSABLE TABLET ONE (03:59)
[2022-02-11] MEDS: hydrOXYzine PAMOATE 25 MG CAPSULE (FP) PO SCH ×5 (05:09→22:08)
[2022-02-11] MEDS: chlordiazePOXIDE HCL 10 MG CAPSULE PO SCH ×4 (05:10→22:08)
[2022-02-11] MEDS: methaDONE 40 MG, methaDONE 20 MG PO SCH (05:11)
[2022-02-11] MEDS: BUDESONIDE/FORMETEROL FUMARATE 160/4.5 mcg INHALER IH SCH ×2 (10:10→22:07)
[2022-02-11] MEDS: PRENATAL VITAMINS W/ FOLIC ACID TABLET (FP) PO SCH (10:10)
[2022-02-11] MEDS: amLODIPine BESYLATE 5 MG TABLET (FP) PO SCH (10:11)
[2022-02-11] MEDS: ASPIRIN 81 MG CHEWABLE TABLETS PO SCH (10:11)
[2022-02-11] MEDS: THIAMINE HCL 100 MG TABLET (FP) PO SCH (22:08)
[2022-02-11] MEDS: MELATONIN 5 MG TABLETS PO SCH (22:08)
[2022-02-11] MEDS: ALBUTEROL SO4 HFA INHALER IH PRN (22:09)
[2022-02-12] MEDS ORDERED: methaDONE HCL 40 MG DISPERSABLE TABLET ONE (04:42)
[2022-02-12] MEDS ORDERED: methaDONE HCL 10 MG TABLET ONE (04:42)
[2022-02-12] MEDS: methaDONE 40 MG, methaDONE 20 MG PO SCH (05:45)
[2022-02-12] MEDS: chlordiazePOXIDE HCL 10 MG CAPSULE PO SCH ×2 (05:45→17:42)
[2022-02-12] MEDS: hydrOXYzine PAMOATE 25 MG CAPSULE (FP) PO SCH ×5 (07:06→22:18)
[2022-02-12] MEDS: ASPIRIN 81 MG CHEWABLE TABLETS PO SCH (10:17)
[2022-02-12] MEDS: BUDESONIDE/FORMETEROL FUMARATE 160/4.5 mcg INHALER IH SCH ×2 (10:17→22:18)
[2022-02-12] MEDS: ALBUTEROL SO4 HFA INHALER IH PRN ×2 (10:17→17:42)
[2022-02-12] MEDS: amLODIPine BESYLATE 5 MG TABLET (FP) PO SCH (10:18)
[2022-02-12] MEDS: PRENATAL VITAMINS W/ FOLIC ACID TABLET (FP) PO SCH (10:18)
[2022-02-12] MEDS: MELATONIN 5 MG TABLETS PO SCH (22:18)
[2022-02-12] MEDS: THIAMINE HCL 100 MG TABLET (FP) PO SCH (22:18)
[2022-02-13] MEDS ORDERED: methaDONE HCL 10 MG TABLET ONE (03:57)
[2022-02-13] MEDS ORDERED: methaDONE HCL 40 MG DISPERSABLE TABLET ONE (03:57)
[2022-02-13] MEDS ORDERED: chlordiazePOXIDE HCL 10 MG CAPSULE PO ONE (05:00)
[2022-02-13] MEDS: hydrOXYzine PAMOATE 25 MG CAPSULE (FP) PO SCH (06:41)
[2022-02-13] MEDS: methaDONE 40 MG, methaDONE 20 MG PO SCH (06:41)
[2022-02-13 08:55] VITALS: BP 85/55; PULSE 74; TEMP 96.9
== END 2022-02-13 09:00 | disposition home or self-care (01) | DRG 773 ==
LOC: YASAS 11:52 → Y3N 16:06
PROVIDERS: ADMIT Allergy & Immunology; ATTEND Surgery
PROC: HZ2ZZZZ Detoxification Services for Substance Abuse Treatment (ICD-10-PCS; principal; 2022-02-08)
DX: F10.230 Alcohol dependence with withdrawal, uncomplicated (principal); F11.20 Opioid dependence, uncomplicated; F14.20 Cocaine dependence, uncomplicated; F12.20 Cannabis dependence, uncomplicated; F17.210 Nicotine dependence, cigarettes, uncomplicated; F31.9 Bipolar disorder, unspecified; F19.282 Other psychoactive substance dependence with psychoactive substance-induced sleep disorder; F19.24 Other psychoactive substance dependence with psychoactive substance-induced mood disorder; E78.5 Hyperlipidemia, unspecified; I10 Essential (primary) hypertension; J43.8 Other emphysema; J45.20 Mild intermittent asthma, uncomplicated; W06.XXXA Fall from bed, initial encounter; Y92.230 Patient room in hospital as the place of occurrence of the external cause; Z99.89 Dependence on other enabling machines and devices; Z86.73 Personal history of transient ischemic attack (TIA), and cerebral infarction without residual deficits; Z91.013 Allergy to seafood
CPT/HCPCS: 36415; 80053; 82947; 83036; 85027; 86780; C9803-CS; U0003; U0005